=== PATIENT | male | born 1970 | race Caucasian/White ===

== ENCOUNTER → 2017-12-31 08:57 | Outpatient (CLI) | payer MEDICAID, SELFPAY | LOC: POLAB3 08:57 → LAB.FUTURE 11:28 | PROVIDERS: Family Provider Family Medicine Geriatric Medicine; PCP Family Medicine Geriatric Medicine; Visit Provider Family Medicine Geriatric Medicine | DX: I10 Essential (primary) hypertension (principal) ==

== ENCOUNTER → 2018-01-12 13:30 | Outpatient (CLI) | payer MEDICAID, SELFPAY | PROVIDERS: Family Provider Family Medicine Geriatric Medicine; PCP Family Medicine Geriatric Medicine; Visit Provider Family Medicine Geriatric Medicine | DX: I10 Essential (primary) hypertension (principal) ==

== ENCOUNTER → 2018-01-12 15:34 | Outpatient (CLI) | payer MEDICAID, SELFPAY ==
[2018-01-12 16:23] LABS: Absolute Lymphocyte Count 4.46 X10^3/ul (0.83-4.51); Absolute Neutrophil Count 4.7 X10^3/uL (2.0-7.7); Basophil# 0.06 X10^3/uL; Basophil% 0.6 % (0-1); Hematocrit 41.4 % (40-54); Hemoglobin 14.3 g/dl (13.0-16.5); Lymphocyte # 4.46 X10^3/ul (4.0); Lymphocyte % 43.6 % (19-41); Mean Corp Hgb Conc 34.5 g/gl (32-36); Mean Corpuscular Hgb 30.6 pg (27.0-32.0); Mean Corpuscular Volume 88.5 fL (80-94); Mean Platelet Vol. 10.2 fl (6.2-12.0); Monocyte# 0.83 X10^3/uL; Monocyte% 8.1 % (0-10); Neutrophil # 4.67 X10^3/uL (2.7-7.7); Neutrophil % 45.5 % (47-70); Platelet Count 283 K/mm3 (150-450); RBC Distribution Width SD 41.8 fl (35.1-43.9); Red Blood Count 4.68 M/mm3 (4.6-6.2); White Blood Count 10.2 K/mm3 (4.4-11.0)
[2018-01-12 16:24] LABS: POSITIVE COUNT NO; POSITIVE DIFFERENTIAL NO; POSITIVE MORPHOLOGY NO
[2018-01-12 16:47] LABS: ALB/GLOB Ratio 0.8 RATIO (0.9-2.4); AST(SGOT) 22 U/L (15-37); Alanine Aminotransfer ALT/SGPT 32 U/L (16-61); Albumin, Serum 3.4 g/dL (3.2-5.0); Alkaline Phosphatase 112 U/L (45-117); Anion Gap 5 (5-15); BUN 12 mg/dL (7-18); Calcium,Total 8.5 mg/dL (8.5-10.1); Chloride 105 mmol/L (98-107); EST Glomerular Filtration Rate 128 mL/min (>60); Est Glom Filt Rate - Afr Amer 155 mL/min (>60); Glucose 78 mg/dL (74-106); Potassium 4.5 mmol/L (3.5-5.1); Protein, Total 7.4 g/dL (6.4-8.2); Sodium Level 140 mmol/L (136-145); Thyroid Stim Hormone (TSH) 1.54 uIU/mL (0.358-3.74)
== END ==
PROVIDERS: Family Provider Family Medicine Geriatric Medicine; PCP Family Medicine Geriatric Medicine; Visit Provider Family Medicine Geriatric Medicine
DX: I10 Essential (primary) hypertension (principal)
CPT/HCPCS: 36415; 80053; 84443; 85025

== ENCOUNTER → 2019-01-25 | Outpatient (CLI) | payer MEDICAID, SELFPAY ==
[2019-01-25 12:57] LABS: Absolute Lymphocyte Count 4.23 X10^3/ul (0.83-4.51); Basophil# 0.06 X10^3/uL; Basophil% 0.6 % (0-1); Eosinophil# 0.22 X10^3/uL; Eosinophils% 2.1 % (0-5); Hemoglobin 14.1 g/dl (13.0-16.5); Lymphocyte # 4.23 X10^3/ul (4.0); Lymphocyte % 41.2 % (19-41); Mean Corp Hgb Conc 33.6 g/gl (32-36); Mean Corpuscular Hgb 29.7 pg (27.0-32.0); Mean Corpuscular Volume 88.4 fL (80-94); Mean Platelet Vol. 11.1 fl (6.2-12.0); Monocyte# 0.77 X10^3/uL; Monocyte% 7.5 % (0-10); Neutrophil # 4.95 X10^3/uL (2.7-7.7); Neutrophil % 48.3 % (47-70); Platelet Count 243 K/mm3 (150-450); RBC Distribution Width CV 13.7 % (11.6-14.6); Red Blood Count 4.75 M/mm3 (4.6-6.2); White Blood Count 10.3 K/mm3 (4.4-11.0)
[2019-01-25 12:59] LABS: POSITIVE COUNT NO; POSITIVE DIFFERENTIAL NO; POSITIVE MORPHOLOGY NO
[2019-01-25 13:14] LABS: ALB/GLOB Ratio 0.9 RATIO (0.9-2.4); AST(SGOT) 19 U/L (15-37); Alanine Aminotransfer ALT/SGPT 31 U/L (16-61); Albumin, Serum 3.5 g/dL (3.2-5.0); Alkaline Phosphatase 99 U/L (45-117); Anion Gap 9 (5-15); BUN 13 mg/dL (7-18); BUN/Creat Ratio 15.7 RATIO (10-20); Calcium,Total 8.5 mg/dL (8.5-10.1); Chloride 108 mmol/L (98-107); Creatinine, Serum 0.83 mg/dL (0.70-1.30); EST Glomerular Filtration Rate 106 mL/min (>60); Est Glom Filt Rate - Afr Amer 128 mL/min (>60); Globulin 3.9 g/dL (2.2-4.2); Glucose 156 mg/dL (74-106); Potassium 3.8 mmol/L (3.5-5.1); Protein, Total 7.4 g/dL (6.4-8.2); Sodium Level 141 mmol/L (136-145); Thyroid Stim Hormone (TSH) 0.75 uIU/mL (0.358-3.74)
== END | disposition home or self-care (01) ==
LOC: POLAB3 11:34
PROVIDERS: Family Provider Family Medicine Geriatric Medicine; PCP Family Medicine Geriatric Medicine; Visit Provider Family Medicine Geriatric Medicine
DX: I10 Essential (primary) hypertension (principal)
CPT/HCPCS: 36415; 80053; 84443; 85025

== ENCOUNTER → 2020-04-15 14:25 | Outpatient (CLI) | payer MEDICAID, SELFPAY ==
[2020-04-15 14:52] LABS: Absolute Lymphocyte Count 3.99 X10^3/uL (0.83-4.51); Absolute Neutrophil Count 5.8 X10^3/uL (2.0-7.7); Basophil# 0.08 X10^3/uL; Basophil% 0.7 % (0-1); Eosinophil# 0.41 X10^3/uL; Eosinophils% 3.7 % (0-5); Hematocrit 39.6 % (40-54); Hemoglobin 13.1 g/dL (13.0-16.5); Lymphocyte # 3.99 X10^3/ul (4.0); Lymphocyte % 35.7 % (19-41); Mean Corp Hgb Conc 33.1 g/dL (32-36); Mean Corpuscular Hgb 29.5 pg (27.0-32.0); Mean Corpuscular Volume 89.2 fL (80-94); Mean Platelet Vol. 9.9 fl (6.2-12.0); Monocyte# 0.87 X10^3/uL; Monocyte% 7.8 % (0-10); NRBC Flagged by Analyzer 0 % (0-5); Neutrophil # 5.82 X10^3/uL (2.7-7.7); Neutrophil % 51.9 % (47-70); Platelet Count 290 K/mm3 (150-450); RBC Distribution Width CV 12.7 % (11.6-14.6); RBC Distribution Width SD 41.4 fl (35.1-43.9); Red Blood Count 4.44 M/mm3 (4.6-6.2); White Blood Count 11.2 K/mm3 (4.4-11.0)
[2020-04-15 15:17] LABS: ALB/GLOB Ratio 0.8 RATIO (0.9-2.4); AST(SGOT) 14 U/L (15-37); Alanine Aminotransfer ALT/SGPT 28 U/L (16-61); Albumin, Serum 3.3 g/dL (3.2-5.0); Alkaline Phosphatase 98 U/L (45-117); Anion Gap 5 (5-15); BUN 17 mg/dL (7-18); BUN/Creat Ratio 21.2 RATIO (10-20); Calcium,Total 8.8 mg/dL (8.5-10.1); Chloride 107 mmol/L (98-107); EST Glomerular Filtration Rate 109 mL/min (>60); Est Glom Filt Rate - Afr Amer 132 mL/min (>60); Glucose 109 mg/dL (74-106); Potassium 4.1 mmol/L (3.5-5.1); Protein, Total 7.3 g/dL (6.4-8.2); Sodium Level 139 mmol/L (136-145); Thyroid Stim Hormone (TSH) 1.33 uIU/mL (0.358-3.74)
== END ==
PROVIDERS: PCP Family Medicine Geriatric Medicine; Visit Provider Family Medicine Geriatric Medicine
DX: I10 Essential (primary) hypertension (principal)
CPT/HCPCS: 36415; 80053; 84443; 85025

== ENCOUNTER 2020-12-18 23:02 | Inpatient (IN) | payer MEDICAID, SELFPAY ==
[2020-12-18 23:03] VITALS: BP 138/81; PULSE 89; RESP 18; TEMP 36.9; O2SAT 100; BMI 28.1
--- NOTE | 2020-12-18 23:22 | ED.VIS.GEN ---
History of Present Illness Chief Complaint: Substance Abuse Narrative: Patient is a 50-year-old male who presents with drug use and agitation. He states he normally takes Suboxone. He only took about a half a tablet today and was not feeling well. He states a friend gave him another pill that was like Suboxone but was not. He states that after taking this he does not feel well. He feels agitated. He became diaphoretic. He is complaining cramping in his legs. This feels somewhat like withdrawal. He denies fevers nausea vomiting diarrhea or recent illness. He does have a history of atrial fibrillation. He takes metoprolol and a cholesterol medicine. He does not believe he takes a blood thinner. He does admit to polysubstance abuse and also used methamphetamine this morning. Past Medical History - Allergies and Home Meds Allergies/Adverse Reactions: Allergies No Known Allergies Allergy (Verified 12/18/20 23:05) Primary Care Physician: Moisés Ravi Chi, MD [Primary Care Provider] - Past Medical History: - - Atrial fibrillation, polysubstance abuse Smoking Status: Current every day smoker Review of Systems All systems negative except as indicated General: Reports: Sweats Eyes: Denies: Visual changes - bilaterally ENT: Denies: Bilateral ear pain Cardiovascular: Denies: Chest pain Respiratory: Denies: Dyspnea Gastrointestinal: Denies: Abdominal pain, Nausea, Vomiting, Diarrhea Musculoskeletal: Reports: Myalgias, - - Muscle cramps Skin: Denies: Rash Neurological: Denies: Headache Allergy: Denies: Uticaria Physical Exam Vital Signs/Narrative: Vital Signs Temp Pulse Resp BP Pulse Ox 12/18/20 23:03 98.5 F 89 18 138/81 H 100 Inital Vital Signs reviewed: Yes General: Acute Distress, - - Entered the room and the patient was lying on the floor screaming Head: Normocephalic, Atraumatic Eyes: EOMI ENT: Moist mucous membranes Neck: Supple Cardiovascular: Regular rate, Regular rhythm Respiratory: No distress, CTA bilaterally Abdomen: Soft, Nontender Extremities: Nontender Skin: - - Diaphoretic Neurological: Alert, - - No focal or lateralizing neurological deficits, agitated Psychological: Normal affect Diagnostic/Tx/Re-eval Laboratory Results 12/18/20 12/18/20 12/18/20 23:35 23:35 23:35 WBC 15.8 H RBC 5.06 Hgb 15.0 Hct 44.5 MCV 87.9 MCH 29.6 MCHC 33.7 RDW Std Deviation 41.1 RDW Coeff of Marilu 12.8 Plt Count 365 MPV 9.8 Immature Gran % (Auto) 0.300 Neut % (Auto) 49.4 Lymph % (Auto) 40.0 Gaines % (Auto) 8.2 Eos % (Auto) 1.6 Baso % (Auto) 0.5 Absolute Neuts (auto) 7.8 H Absolute Lymphs (auto) 6.31 H Nucleated RBC % 0 Differential Comment SCANNED Reactive Lymphocytes 1+ PT 12.3 INR 1.0 Sodium 142 Potassium 3.9 Chloride 108 H Carbon Dioxide 27.0 Anion Gap 7 BUN 17 Creatinine 0.95 Estim Creat Clear Calc 92.00 Est GFR (MDRD) Af Amer 109 Est GFR (MDRD) Non-Af 90 BUN/Creatinine Ratio 18.0 Glucose 105 Calcium 9.1 Total Bilirubin 0.20 Direct Bilirubin < 0.05 AST 17 ALT 25 Alkaline Phosphatase 105 Troponin I < 0.015 Total Protein 7.8 Albumin 3.6 Globulin 4.2 Ethyl Alcohol 12/18/20 23:35 WBC RBC Hgb Hct MCV MCH MCHC RDW Std Deviation RDW Coeff of Marilu Plt Count MPV Immature Gran % (Auto) Neut % (Auto) Lymph % (Auto) Gaines % (Auto) Eos % (Auto) Baso % (Auto) Absolute Neuts (auto) Absolute Lymphs (auto) Nucleated RBC % Differential Comment Reactive Lymphocytes PT INR Sodium Potassium Chloride Carbon Dioxide Anion Gap BUN Creatinine Estim Creat Clear Calc Est GFR (MDRD) Af Amer Est GFR (MDRD) Non-Af BUN/Creatinine Ratio Glucose Calcium Total Bilirubin Direct Bilirubin AST ALT Alkaline Phosphatase Troponin I Total Protein Albumin Globulin Ethyl Alcohol < 3.0 - Medical Decision Making Labs notable for white blood cell count of 15.8, chemistries unremarkable including CMP negative troponin negative alcohol. Patient was given IV Ativan 2 mg twice. He is still somewhat agitated although improved from before. We were able to contact a friend. Patient was given naltrexone. Given that he has been using Suboxone this could precipitate withdrawal symptoms. This is likely the cause of his current presentation. Patient signed out to the oncoming physician to follow-up on remaining studies and reevaluate but plan at this time would be symptomatic control and once improved ultimately discharged. ED Disposition - Plan for ED Patient: Diagnosis: Opiate withdrawal Referrals: Moisés Ravi Chi, MD [Primary Care Provider] -
[2020-12-18] MEDS: LORazepam 2 MG/ML Syringe IV ×2 (23:35→23:56)
[2020-12-18 23:44] VITALS: BP 156/96; PULSE 103; RESP 27; O2SAT 98
[2020-12-18 23:45] LABS: Absolute Lymphocyte Count 6.31 X10^3/uL (0.83-4.51); Absolute Neutrophil Count 7.8 X10^3/uL (2.0-7.7); Basophil# 0.08 X10^3/uL; Basophil% 0.5 % (0-1); Eosinophil# 0.25 X10^3/uL; Eosinophils% 1.6 % (0-5); Hematocrit 44.5 % (40-54); Lymphocyte # 6.31 X10^3/ul (4.0); Mean Corp Hgb Conc 33.7 g/dL (32-36); Mean Corpuscular Hgb 29.6 pg (27.0-32.0); Mean Corpuscular Volume 87.9 fL (80-94); Mean Platelet Vol. 9.8 fl (6.2-12.0); Monocyte% 8.2 % (0-10); NRBC Flagged by Analyzer 0 % (0-5); Neutrophil # 7.79 X10^3/uL (2.7-7.7); Neutrophil % 49.4 % (47-70); POSITIVE DIFFERENTIAL YES; Platelet Count 365 K/mm3 (150-450); RBC Distribution Width CV 12.8 % (11.6-14.6); RBC Distribution Width SD 41.1 fl (35.1-43.9); Red Blood Count 5.06 M/mm3 (4.6-6.2); White Blood Count 15.8 K/mm3 (4.4-11.0)
[2020-12-18 23:46] LABS: Differential Indicated SCAN CRITERIA MET
[2020-12-18 23:54] LABS: Prothrombin Time (Protime)PT. 12.3 SECONDS (11.7-14.9)
[2020-12-19] VITALS (10 sets, daily range): BP systolic 116–178; BP diastolic 75–118; PULSE 70–118; RESP 16–24; TEMP 36.4–37.6; O2SAT 98–100; BMI 27.5
[2020-12-19 00:03] LABS: Alcohol, Blood (Medical)-Serum < 3.0 mg/dL
[2020-12-19 00:09] LABS: Reactive Lymphocyte 1+
[2020-12-19 00:10] LABS: Differential Comment SCANNED
[2020-12-19 00:12] LABS: AST(SGOT) 17 U/L (15-37); Alanine Aminotransfer ALT/SGPT 25 U/L (16-61); Albumin, Serum 3.6 g/dL (3.2-5.0); Alkaline Phosphatase 105 U/L (45-117); Anion Gap 7 (5-15); BUN 17 mg/dL (7-18); Bilirubin, Direct < 0.05 mg/dL (0.00-0.30); Calcium,Total 9.1 mg/dL (8.5-10.1); Chloride 108 mmol/L (98-107); Creatinine, Serum 0.95 mg/dL (0.70-1.30); EST Glomerular Filtration Rate 90 mL/min (>60); Est Glom Filt Rate - Afr Amer 109 mL/min (>60); Globulin 4.2 g/dL (2.2-4.2); Glucose 105 mg/dL (74-106); Potassium 3.9 mmol/L (3.5-5.1); Protein, Total 7.8 g/dL (6.4-8.2); Sodium Level 142 mmol/L (136-145)
--- NOTE | 2020-12-19 00:14 | ED.RN ---
PER PT OK TO SPEAK TO EMMA GARCIA OVER THE PHONE
[2020-12-19] MEDS: Ziprasidone IM 20 MG/ML VIAL IM ×2 (01:06→02:21)
--- NOTE | 2020-12-19 01:08 | ED.RN ---
PT EXTREMELY RESTLESS. TRYING TO GET OUT OF BED. NEEDS REDIRECTED MULTIPLE TIMES, TOO NUMEROUS TO COUNT. DELILAH HOLLAND AT BEDSIDE. PT MOVED TO BED NEAR NURSES STATION. ASKED FOR PRN ORDERS, VERBAL ORDERS GIVEN.
--- NOTE | 2020-12-19 01:17 | ED.RN ---
ELIZABETH CALLED AND SAID PATIENT HAD A REFERRAL TO [facility]. ELIZABETH HAD ALSO ASKED FOR THE PINK SLIP TO BE FAXED OVER TO HER, WAS FAXED AT [phone].
--- NOTE | 2020-12-19 01:29 | RAD_ITS ---
STUDY: X-RAY CHEST REASON FOR EXAM: Male, 50 years old. Altered Mental Status TECHNIQUE: Single AP portable view of the chest. COMPARISON: 08/05/2012 FINDINGS: The lungs are clear and expanded. There is no demonstrated pleural abnormality. Normal size heart. Normal mediastinum and linette. Normal visualized pulmonary arteries. Normal visualized aortic arch and descending thoracic aorta. Normal visualized thoracic spine. Normal visualized ribs, clavicles, and shoulders. There is no demonstrated abnormality of the visualized soft tissue structures of the upper abdomen. RAD/Chest 1 View (Portable) IMPRESSION: Normal x-ray examination of the chest. Electronically Signed: Rodri Boyer DO at 2:00 EST Tel , Service support ,
--- NOTE | 2020-12-19 01:51 | ED.RN ---
PT CONTINUES TO MOVE ALL OVER THE BED. NEEDS REDIRECTED TO STAY IN BED. WILL NOT KEEP A BLANKET OR GOWN ON. PLACES BLANKET ON HIMSELF AND THEN KICKS IT OFF. WILL CONTINUE TO MONITOR.
--- NOTE | 2020-12-19 01:52 | ED.RN ---
pt arrives to ed with acute s/s of withdraw. pt was thrashing around bed, cool, and damp to the touch. cina completed and IV Ativan ordered to help control withdraw symptoms. pt required frequent reminders to stay in bed, because he was at risk of falling while on medications. IV access was pulled by pt restless movements in the bed. significant other arrived to ed shortly after visiting the pt stated I have to go. I can't see him like this and departed. after multiple interventions to assist him to scoot back into the bed pt was moved into the front of the department for closer observation. pt was re-evaluated to night time md and addition medications ordered to assist him to remain calm. this nurse stayed at bedside verbally reminding pt to stay in bed and covering him with a blanket. night md has evaluated pt multiples times post intervention. pt care has been impeded by pt restlessness. care transfered to night time rn at 0145. luke munguia, katheryn [phone]
[2020-12-19] MEDS: DiphenhydrAMINE 50 MG/ML Syringe IM (02:21)
--- NOTE | 2020-12-19 02:51 | ED.RN ---
PT GIRLFRIEND HAS COUPLE'S CAR AND DOES NOT HAVE ENOUGH GAS TO GET HOME. GIRLFRIEND ASKING FOR SOME OF THE COUPLE'S RAMON THAT IS ON PATIENT. PATIENT BROWN JACKET SEARCHED AND MONEY LOCATED IN BREAST POCKET ALONG WITH A SMALL PLASTIV BAG FILLED WITH A BLUE POWDER. BAG WITH BLUE POWDER GIVEN TO O [place]. RAMON COUNTED WITH AWA HOLLAND AND ANAY HOLLAND AND RECORDED. MONEY COUNTED IN FRONT OF PT'S GIRLFRIEND. GIRLFRIEND TOOK $40 (2-20'S) TO FILL UP CAR TO GET HOME TO [place]. CHAIN OF CUSTODY PATIENT BELONGINGS PAPER FILLED OUT AND SIGNED. PT GAVE CONSENT PRIOR TO BEING MEDICATED TO SHARE ALL MEDICAL INFORMATION WITH GIRLFRIEND
--- NOTE | 2020-12-19 02:52 | ED.RN ---
PT WAS PLACED IN LEATHER, LOCKED RESTRAINTS. PT CONTINUES AGITATION, CONFUSION, EXTREME FALL RISK, EXTREME SELF DESTRUCTIVE BEHAVIOR. ATTEMPTED TO PLACE PT ON TELEMETRY, PT IS THRASHING IN BED, TELEMETRY LEADS, BP CUFF AND PULSE OX WILL NOT STAY ON PT. PT IS REDIRECTED ABOUT EVERY THREE MINUTES. PT WAS MEDICATED AGAIN. RESTRAINT PAPERWORK STARTED, UNABLE TO COMPLETE FULL VITAL SIGNS D/T THRASHING AND AGITATION. MULTIPLE STAFF MEMBERS HAVE REDIRECTED PATIENT. INFORMATION TECHNOLOGY OFFICER AT BEDSIDE TO REDIRECT PT. MD HAS BEEN UPDATED THROUGHOUT HOSPITAL STAY.
[2020-12-19 03:47] LABS: CPK Total, Creatine Kinase 166 U/L (39-308)
--- NOTE | 2020-12-19 04:01 | ED.RN ---
PT CONTINUES AGITATION, CONFUSION AND DELIRIUM. RN RETURNS FROM LUNCH WITH MULTIPLE RNS AND MD IN ROOM. PT HAS BEEN REPOSITIONED, CATHETER FOR UA. IV WAS PLACED WHILE RN WAS ON LUNCH.
[2020-12-19 04:07] LABS: Bacteria 0 SEEN /hpf (None Seen); Mucous, Urine 0 SEEN /hpf (<or=2+); Red Blood Cells-Urine 0 SEEN /hpf (0-5); Squamous Epithelial Cells - UA 0 SEEN /hpf (0-5); White Blood Cells 0 SEEN /hpf (0-5)
[2020-12-19 04:08] LABS: Amphetamine Urine VISTA POSITIVE (<1000 ng/mL); Barbiturate Urine VISTA NEGATIVE (< 200 ng/mL); Benzodiazepine Urine VISTA NEGATIVE (< 200 ng/mL); Cocaine Urine VISTA NEGATIVE (< 300 ng/mL); Color, Urine Yellow (Yellow); Ecstacy Urine VISTA NEGATIVE (< 500 ng/mL); Glucose, Dipstick Normal (Normal); Ketone-Dipstick Negative (Negative); Leukocyte Esterase-Dipstick Negative /ul (Negative); Methadone Urine VISTA NEGATIVE (< 300 ng/mL); Nitrite-Dipstick Negative (Negative); Occult Blood-Urine Negative /ul (Negative); PCP Urine VISTA NEGATIVE (< 25 ng/mL); Protein-Dipstick Negative (Negative); Specific Gravity, Urine 1.015 (1.002-1.030); THC Urine VISTA POSITIVE (< 50 ng/mL); Urine Bilirubin Dipstick Negative (Negative); Urine Clarity Clear (Clear); Urine Urobilinogen Normal (Normal); Vista UDS pH Range 6
[2020-12-19] MEDS: 0.9% Normal Saline 1,000 ML 999 ML IV ×2 (04:08→04:53)
[2020-12-19] MEDS: LORazepam 2 MG/ML Syringe IV (04:08)
--- NOTE | 2020-12-19 06:33 | ED.RN ---
PT HAS RED PEREZ ON BILATERAL ANKLES D/T RESTRAINTS. AWARE. PT CONTINUES THRASHING AROUND IN BED.
--- NOTE | 2020-12-19 08:52 | NURSING ---
PT ARRIVED TO FLOOR IN 4 POINT LEATHER RESTRAINTS. AGITATED, TRYING TO WIGGLE OUT OF RESTRAINTS. UNABLE TO ANSWER APPROPRIATE ADMISSION QUESTIONS @ THIS TIME.
--- NOTE | 2020-12-19 08:57 | NURSING ---
Brielle Chauncey [phone] called in stating she is aware her brother is a patient there. explained she is not on contact list and unable to give any information. explained visitor restriction for this patient. Brielle requesting that when able we talk with patient and see if she can be added to the contact list.
--- NOTE | 2020-12-19 08:58 | NURSING ---
PT AGITATED, TRYING TO GET OUT OF RESTRAINTS
--- NOTE | 2020-12-19 09:11 | NURSING ---
PTS MOTHER, CASSY NAIK CALLED IN FOR UPDATE ON PT
[2020-12-19] MEDS: Gabapentin 300 MG Capsule PO (09:27)
[2020-12-19] MEDS: Methocarbamol 750 MG Tablet 1500 MG PO ×2 (09:27→17:07)
[2020-12-19] MEDS: cloNIDine HCl 0.1 MG Tablet PO ×2 (09:27→17:06)
[2020-12-19] MEDS: Buprenorphine HCl 2 MG TAB.SUBL SL ×2 (09:27→17:07)
[2020-12-19] MEDS: hydrOXYzine PAM 25 MG Capsule 50 MG PO ×2 (09:27→17:07)
--- NOTE | 2020-12-19 09:57 | NURSING ---
GIVEN PT'S MENTAL STATUS, PT IS UNABLE TO ANSWER QUESTIONS, PAST MEDICAL HISTORY WAS RECALLED
--- NOTE | 2020-12-19 11:09 | NURSING ---
PT RESTLESS , PULLING @ RESTRAINTS BUT EYES CLOSED, RESP EASY.
--- NOTE | 2020-12-19 12:06 | NURSING ---
PT RESTING @ THIS TIME. DR GUILLAUME IN TO SEE PT.
--- NOTE | 2020-12-19 13:18 | PCM.HP.STD ---
History of Present Illness Date of Admission: 12/19/20 Chief Complaint: Withdrawal The patient is a 50 year old M [facility] as below who presents to the hospital with opiate withdrawal. He states that he is on Suboxone at home at baseline and thinks that somebody gave him something that reversed his Suboxone. He has been very difficult to manage in the ER, with severe agitation. He has been given total of 6 mg of Ativan, 40 mg of Geodon and 50 mg of Benadryl. He is currently resting but is in restraints at this time obtaining a history for him is extremely challenging therefore most of this is obtained from chart review and discussion with the physician. He does have a history of polysubstance abuse and use methamphetamines yesterday morning. He also has a history of A. fib but does not take any anticoagulants. Past Medical History Allergies No Known Allergies Allergy (Verified 12/18/20 23:05) Home Medications: Ambulatory Orders Medication Instructions Recorded Atorvastatin Calcium 40 mg PO QHS 12/18/20 Buprenorphine HCl/Naloxone HCl 1 ea SL DAILY 12/18/20 [Buprenorp-Nalox 8-2 mg Sl Film] Metoprolol Succinate [Toprol Xl] 100 mg PO DAILY 12/18/20 Surgical History: - - Unable to obtain due to his mental status Smoking Status: Current every day smoker Tobacco Use: Cigarettes Drugs: - - With amphetamines and Suboxone - *Family History Maternal History Items: Unknown Paternal History Items: Unknown Review of Systems Unable to obtain accurate/complete ROS d/t: Mental status VTE Information - Inpt Only VTE Present on Admission: No Patient Problems: Active and Suspected Problems Opiate withdrawal (Acute) - Physical Exam Vitals/I&O's: Vital Signs Temp Pulse Resp BP Pulse Ox 99.6 F H 84 22 H 154/92 H 100 12/19/20 12:09 12/19/20 12:09 12/19/20 12:09 12/19/20 12:09 12/19/20 12:09 Oxygen Delivery Method Room Air Weight: 181 lb Body Mass Index (BMI) 27.5 Intake and Output for Last 24 Hours 12/17/20 12/18/20 12/19/20 23:59 23:59 23:59 Intake Total 2150 / 2150 Output Total 500 / 500 Balance 1650 / 1650 General: No apparent distress, Lethargic HEENT: Atraumatic, PERRLA, Normocephalic Oral: Dry Mucosa Neck: Supple, No JVD Lungs: Clear to auscultation, Normal air movement, No rhonchi, No wheeze, No rales Cardiovascular: Regular rate, Regular Rhythm, Normal S1, Normal S2, No murmurs Abdomen: Soft, Non-Distended, No Hepato-splenomegaly Extremities: No edema, Capillary Refill Less than 3 Seconds Skin: No rashes, No breakdown Neurological: - - Unable to obtain secondary to mental status Psych/Mental Status: - - Unable to evaluate secondary to mental status Laboratory Results 12/18/20 23:35: WBC 15.8 H, RBC 5.06, Hgb 15.0, Hct 44.5, MCV 87.9, MCH 29.6, MCHC 33.7, RDW Std Deviation 41.1, RDW Coeff of Marilu 12.8, Plt Count 365, MPV 9.8, Immature Gran % (Auto) 0.300, Neut % (Auto) 49.4, Lymph % (Auto) 40.0, Schleicher % (Auto) 8.2, Eos % (Auto) 1.6, Baso % (Auto) 0.5, Absolute Neuts (auto) 7.8 H, Absolute Lymphs (auto) 6.31 H, Nucleated RBC % 0, Differential Comment SCANNED, Reactive Lymphocytes 1+ 12/18/20 23:35: PT 12.3, INR 1.0 12/18/20 23:35: Sodium 142, Potassium 3.9, Chloride 108 H, Carbon Dioxide 27.0, Anion Gap 7, BUN 17, Creatinine 0.95, Estim Creat Clear Calc 92.00, Est GFR (MDRD) Af Amer 109, Est GFR (MDRD) Non-Af 90, BUN/Creatinine Ratio 18.0, Glucose 105, Calcium 9.1, Total Bilirubin 0.20, Direct Bilirubin < 0.05, AST 17, ALT 25, Alkaline Phosphatase 105, Troponin I < 0.015, Total Protein 7.8, Albumin 3.6, Globulin 4.2 12/18/20 23:35: Ethyl Alcohol < 3.0 12/18/20 23:35: Total Creatine Kinase 166 12/19/20 03:50: Urine Opiates Screen NEGATIVE, Urine Methadone Screen NEGATIVE, Ur Barbiturates Screen NEGATIVE, Ur Phencyclidine Scrn NEGATIVE, Ur Amphetamines Screen POSITIVE H, U Methamphetamin-MDMA NEGATIVE, U Benzodiazepines Scrn NEGATIVE, Urine Cocaine Screen NEGATIVE, U Cannabinoids Screen POSITIVE H, Ur Drug Screen Comment 12/19/20 03:50: Urine Color Yellow, Urine Clarity Clear, Urine pH 7.0, Ur Specific [place] 1.015, Urine Protein Negative, Urine Glucose (UA) Normal, Urine Ketones Negative, Urine Occult Blood Negative, Urine Nitrite Negative, Urine Bilirubin Negative, Urine Urobilinogen Normal, Ur Leukocyte Esterase Negative, Urine RBC 0 SEEN, Urine WBC 0 SEEN, Ur Squamous Epith Cells 0 SEEN, Urine Bacteria 0 SEEN, Urine Mucus 0 SEEN Current Medications Buprenorphine HCl (Buprenorphine Hcl 2 Mg Tab.Subl) 4 mg SL Q8H ROBERT; Taper Stop: 12/22/20 09:29 Last Admin: 12/19/20 09:27 Dose: 4 mg Documented by: Chlordiazepoxide (Chlordiazepoxide 25 Mg Capsule) 25 mg PO TID ROBERT Clonidine (Clonidine Hcl 0.1 Mg Tablet) 0.1 mg PO Q8H PRN PRN PRN Reason: RESTLESSNESS Last Admin: 12/19/20 09:27 Dose: 0.1 mg Documented by: Dicyclomine HCl (Dicyclomine 10 Mg Capsule) 20 mg PO Q6H PRN PRN PRN Reason: Abdominal Discomfort Gabapentin (Gabapentin 300 Mg Capsule) 300 mg PO Q8H PRN PRN PRN Reason: moderate to severe anxiety Last Admin: 12/19/20 09:27 Dose: 300 mg Documented by: Hydroxyzine Pamoate (Hydroxyzine Erna 25 Mg Capsule) 50 mg PO Q6H PRN PRN PRN Reason: mild anxiety Last Admin: 12/19/20 09:27 Dose: 50 mg Documented by: Loperamide HCl (Loperamide 2 Mg Capsule) 2 mg PO Q4H PRN PRN PRN Reason: LOOSE STOOLS Methocarbamol (Methocarbamol 750 Mg Tablet) 1,500 mg PO Q6H PRN PRN PRN Reason: MUSCLE SPASM Last Admin: 12/19/20 09:27 Dose: 1,500 mg Documented by: Ondansetron HCl (Ondansetron 8 Mg Tablet) 8 mg PO Q8H PRN PRN PRN Reason: NAUSEA Sodium Chloride (0.9% Saline Lock 10 Ml Syringe) 10 - 40 ml IV UD PRN PRN Reason: SALINE FLUSH Trazodone HCl (Trazodone 100 Mg Tablet) 100 mg PO QHS PRN PRN PRN Reason: INSOMNIA Assessment/Plan All Active Problems Opiate withdrawal (Acute) 1. Drug withdrawal psychosis/polysubstance abuse -He is on chronic Suboxone and states that he took a pill and he was not sure what but he thinks that may have reversed his Suboxone -He also took methamphetamines prior to coming into the ER last evening -He has been given multiple doses of Ativan as well as Benadryl and Geodon -Since he does have a history of polysubstance abuse I am not sure as to what he is taking we will continue with the Suboxone taper when able as well as Librium since his liver function and renal function are stable -We will have him evaluated by 180 2. A. fib -Heart rate and blood pressure are stable -Received 2 L of fluid in the ER, can resume his home metoprolol -He is 50 years old so no need for anticoagulation at this time -Continue with Lipitor DVT: Ambulation Inpatient E&M: 05905 Init Hosp L2
--- NOTE | 2020-12-19 13:22 | NURSING ---
PT RESTING QUIETLY IN BED, EYES CLOSED, RESP EASY. R ANKLE RESTRAINT REMOVED.
[2020-12-19] MEDS: chlordiazePOXIDE 25 MG Capsule PO ×2 (14:13→23:27)
--- NOTE | 2020-12-19 14:37 | NURSING ---
PT RESTING IN BED, EYES CLOSED, SNORING RESP. RESTRAINT REMOVED FROM LUE. PT NOW IN 2 POINT RESTRAINTS.
--- NOTE | 2020-12-19 14:54 | NURSING ---
PT AWOKE FOR A FEW MOMENTS. PT STATES I'M SORRY FOR LAST NIGHT. GEOTHERMAL FIELD TECHNICIAN ASKED PT IF HE KNOWS WHERE HE IS - PT STATES [facility]. PT ASKED IF HE KNOWS WHY HE IS HERE, PT STATES BECAUSE I WAS IN WITHDRAWAL & I COULDN'T HANDLE IT. PT CALM & COOPERATIVE @ THIS TIME.
--- NOTE | 2020-12-19 15:06 | NURSING ---
superficial skin abrasions noted to bilateral anterior ankles noted from patient thrashing with the leather ankle restraints in place. placed small opsite dressings to protect skin. skin to bilateral wrists appears intact at this time.
[2020-12-19] MEDS: Metoprolol(XL)Succ 100 MG Tablet PO (17:07)
--- NOTE | 2020-12-19 17:10 | NURSING ---
pt awakens to name being spoken. cooperative to take po medications with his milk. then closes eyes and rests. HOB elevated
--- NOTE | 2020-12-19 17:21 | NURSING ---
pt cooperative, denies feeling of wanting to harm self or others. states he feels he is in control and able to follow rules for both staff and patient safety. pt updated on RAMP program at guidance of Dr. Valdes, pt verbalizes understanding and agrees to sign form. Resource officer at bedside to check in on pt- pt agrees to behave and states oh, you wont have any problems, thank you for keeping me safe. restraints removed. pt then asks if hob can be lowered i just want to get some sleep offered any other meal choices of pt preference and pt declines. states i just want to sleep. Said nurse remains at bedside 1:1 to monitor pt.
--- NOTE | 2020-12-19 17:25 | NURSING ---
pt states the it is okay to release information to his sister Brielle Grossman as well.
--- NOTE | 2020-12-19 18:34 | NURSING ---
aware pt released from 1:1 remains on camera w/ bedexit. awaRe pt a&Ox3, cooperative at present
--- NOTE | 2020-12-19 18:55 | NURSING ---
1820- pt continues to rest quietly in bed. cooperative when opens eyes briefly, no needs. Bed exit remains on.
[2020-12-19] MEDS: Ondansetron 8 MG Tablet PO (22:19)
[2020-12-19] MEDS: Atorvastatin Calcium 40 MG Tablet PO (23:27)
[2020-12-20] MEDS: Buprenorphine HCl 2 MG TAB.SUBL SL ×2 (01:29→09:04)
[2020-12-20 02:00] VITALS: BP 128/83; PULSE 71; RESP 18; TEMP 36.8; O2SAT 100
[2020-12-20] MEDS: chlordiazePOXIDE 25 MG Capsule PO (05:25)
--- NOTE | 2020-12-20 08:57 | PCM.PN.HOSP ---
Patient Problems: Active and Suspected Problems Opiate withdrawal (Acute) Subjective: Alert today, resting comfortably. States that he really wants to get clean and is willing to stay through the ramp process Vitals/I&O's: Vital Signs Temp Pulse Resp BP Pulse Ox 98.2 F 71 18 128/83 H 100 12/20/20 02:00 12/20/20 02:00 12/20/20 02:00 12/20/20 02:00 12/20/20 02:00 Oxygen Delivery Method Room Air Weight: 180 lb 15.992 oz Body Mass Index (BMI) 27.5 Intake and Output for Last 24 Hours 12/18/20 12/19/20 12/20/20 23:59 23:59 23:59 Intake Total 2970 / 2970 300 / 300 Output Total 500 / 500 Balance 2470 / 2470 300 / 300 General: Alert, Oriented x3, Cooperative, No apparent distress HEENT: Atraumatic, PERRLA, EOMI, Normocephalic Oral: Moist Mucosa Neck: Supple, No JVD Lungs: Clear to auscultation, Normal air movement, No rhonchi, No wheeze, No rales Cardiovascular: Regular rate, Regular Rhythm, Normal S1, Normal S2, No murmurs Abdomen: Soft, Non Tender, Non-Distended, No Hepato-splenomegaly Extremities: No edema, Capillary Refill Less than 3 Seconds Skin: No rashes, No breakdown Neurological: Neuro grossly intact, Sensory exam intact to light touch and pain Psych/Mental Status: Normal Affect, Appropriate Current Medications Atorvastatin Calcium (Atorvastatin Calcium 40 Mg Tablet) 40 mg PO QHS [facility] Last Admin: 12/19/20 23:27 Dose: 40 mg Documented by: Buprenorphine HCl (Buprenorphine Hcl 2 Mg Tab.Subl) 4 mg SL Q8H [facility]; Taper Stop: 12/22/20 09:29 Last Admin: 12/20/20 01:29 Dose: 4 mg Documented by: Chlordiazepoxide (Chlordiazepoxide 25 Mg Capsule) 25 mg PO TID [facility] Last Admin: 12/20/20 05:25 Dose: 25 mg Documented by: Clonidine (Clonidine Hcl 0.1 Mg Tablet) 0.1 mg PO Q8H PRN PRN PRN Reason: RESTLESSNESS Last Admin: 12/19/20 17:06 Dose: 0.1 mg Documented by: Dicyclomine HCl (Dicyclomine 10 Mg Capsule) 20 mg PO Q6H PRN PRN PRN Reason: Abdominal Discomfort Gabapentin (Gabapentin 300 Mg Capsule) 300 mg PO Q8H PRN PRN PRN Reason: moderate to severe anxiety Last Admin: 12/19/20 09:27 Dose: 300 mg Documented by: Hydroxyzine Pamoate (Hydroxyzine Erna 25 Mg Capsule) 50 mg PO Q6H PRN PRN PRN Reason: mild anxiety Last Admin: 12/19/20 17:07 Dose: 50 mg Documented by: Loperamide HCl (Loperamide 2 Mg Capsule) 2 mg PO Q4H PRN PRN PRN Reason: LOOSE STOOLS Methocarbamol (Methocarbamol 750 Mg Tablet) 1,500 mg PO Q6H PRN PRN PRN Reason: MUSCLE SPASM Last Admin: 12/19/20 17:07 Dose: 1,500 mg Documented by: Metoprolol Succinate (Metoprolol(Xl)Succ 100 Mg Tablet) 100 mg PO DAILY ROBERT Last Admin: 12/19/20 17:07 Dose: 100 mg Documented by: Ondansetron HCl (Ondansetron 8 Mg Tablet) 8 mg PO Q8H PRN PRN PRN Reason: NAUSEA Last Admin: 12/19/20 22:19 Dose: 8 mg Documented by: Sodium Chloride (0.9% Saline Lock 10 Ml Syringe) 10 - 40 ml IV UD PRN PRN Reason: SALINE FLUSH Trazodone HCl (Trazodone 100 Mg Tablet) 100 mg PO QHS PRN PRN PRN Reason: INSOMNIA Medical Necessity - Tobacco Use Smoking Status: Current every day smoker Tobacco Use: Cigarettes Assessment/Plan All Active Problems Opiate withdrawal (Acute) 1. Drug withdrawal psychosis/polysubstance abuse -He is on chronic Suboxone and states that he took a pill and he was not sure what but he thinks that may have reversed his Suboxone -He also took methamphetamines prior to coming into the ER last evening -He has been given multiple doses of Ativan as well as Benadryl and Geodon -Since he does have a history of polysubstance abuse I am not sure as to what he is taking we will continue with the Suboxone taper when able as well as Librium since his liver function and renal function are stable -We will have him evaluated by 180 2. A. fib -Heart rate and blood pressure are stable -Received 2 L of fluid in the ER, can resume his home metoprolol -He is 50 years old so no need for anticoagulation at this time -Continue with Lipitor DVT: Ambulation Inpatient E&M: 82903 Subs Hosp L2
[2020-12-20 09:04] VITALS: PULSE 80
[2020-12-20] MEDS: Metoprolol(XL)Succ 100 MG Tablet PO (09:04)
[2020-12-20 09:12] VITALS: BP 120/86; PULSE 80; RESP 18; TEMP 37.2; O2SAT 98
--- NOTE | 2020-12-20 10:21 | ADDICTION ---
This internal communications writer met with PT in his room to complete ASAM, MSE and DUDIT assessments and to plan for discharge. All assessments completed, faxed to [facility] and placed in PT's chart. PT states that he has independent transportation for d/c. PT scheduled with [facility] for assessment and f/u treatment on 12/23/20.
== END 2020-12-20 13:35 | disposition left against medical advice (07) | DRG 770 ==
LOC: ED 12-19 03:57 → MS3 12-19 07:22
PROVIDERS: Emergency Medicine; Admitting Provider Family Medicine; Emergency Provider Student in an Organized Health Care Education/Training Program; PCP Family Medicine Geriatric Medicine; Visit Provider Family Medicine
DX: F11.23 Opioid dependence with withdrawal (principal); I48.91 Unspecified atrial fibrillation; F17.210 Nicotine dependence, cigarettes, uncomplicated; Z78.1 Physical restraint status; Z79.899 Other long term (current) drug therapy; F15.10 Other stimulant abuse, uncomplicated
CPT/HCPCS: 71045; 80048; 80076; 80307; 81001; 82077; 82550; 84484; 85025; 85610; 99285; 99406; J7030; A4216; J3486

== ENCOUNTER 2022-01-16 09:42 | Outpatient (CLI) | payer MEDICAID, SELFPAY ==
[2022-01-16 12:23] LABS: Absolute Lymphocyte Count 3.33 X10^3/uL (0.83-4.51); Absolute Neutrophil Count 3.7 X10^3/uL (2.0-7.7); Basophil# 0.05 X10^3/uL; Basophil% 0.7 % (0-1); Eosinophil# 0.14 X10^3/uL; Eosinophils% 1.8 % (0-5); Hematocrit 43.6 % (40-54); Hemoglobin 14.4 g/dL (13.0-16.5); Lymphocyte # 3.33 X10^3/ul (0.83-4.51); Lymphocyte % 43.5 % (19-41); Mean Corpuscular Hgb 29.1 pg (27.0-32.0); Mean Corpuscular Volume 88.1 fL (80-94); Mean Platelet Vol. 10.8 fl (6.2-12.0); Monocyte# 0.43 X10^3/uL; Monocyte% 5.6 % (0-10); NRBC Flagged by Analyzer 0 % (0-5); Neutrophil # 3.68 X10^3/uL (2.7-7.7); Platelet Count 240 K/mm3 (150-450); RBC Distribution Width CV 12.8 % (11.6-14.6); Red Blood Count 4.95 M/mm3 (4.6-6.2); White Blood Count 7.7 K/mm3 (4.4-11.0)
[2022-01-16 13:09] LABS: ALB/GLOB Ratio 0.7 RATIO (0.9-2.4); AST(SGOT) 32 U/L (15-37); Alanine Aminotransfer ALT/SGPT 48 U/L (16-61); Albumin, Serum 3.2 g/dL (3.2-5.0); Alkaline Phosphatase 102 U/L (45-117); Anion Gap 5 (5-15); BUN 10 mg/dL (7-18); BUN/Creat Ratio 11.2 RATIO (10-20); Calcium,Total 8.7 mg/dL (8.5-10.1); Chloride 105 mmol/L (98-107); Creatinine, Serum 0.89 mg/dL (0.70-1.30); EST Glomerular Filtration Rate 96 mL/min (>60); Est Glom Filt Rate - Afr Amer 116 mL/min (>60); Globulin 4.4 g/dL (2.2-4.2); Glucose 112 mg/dL (74-106); Potassium 3.8 mmol/L (3.5-5.1); Protein, Total 7.6 g/dL (6.4-8.2); Sodium Level 139 mmol/L (136-145); Thyroid Stim Hormone (TSH) 1.45 uIU/mL (0.358-3.74)
== END 2022-01-16 23:59 | disposition home or self-care (01) ==
LOC: POLAB3 09:44
PROVIDERS: PCP Family Medicine Geriatric Medicine; Visit Provider Family Medicine Geriatric Medicine
DX: I10 Essential (primary) hypertension (principal)
CPT/HCPCS: 36415; 80053; 84443; 85025

== ENCOUNTER 2023-04-25 11:55 | Emergency (ER) | payer MEDICAID, SELFPAY ==
[2023-04-25 11:57] VITALS: BP 146/100; RESP 18; TEMP 35.7; BMI 25.4
--- NOTE | 2023-04-25 12:09 | EX.ED.DYSGE1 ---
HPI <CUONG Lopez - Last Filed: 04/25/23 12:19> History of Present Illness Chief Complaint: Cellulitis Narrative Narrative: 53-year-old male presents with an area of redness and swelling on his right buttocks x3 days. He thinks he may have gotten bit by a spider but is not sure. He denies fever or chills. No history of similar symptoms. PFSH <CUONG Lopez - Last Filed: 04/25/23 12:19> [facility] Medical History (Updated 04/25/23 @ 12:12 by CUONG Lopez) A-fib Hx of opioid abuse Home Medications atorvastatin 40 mg tablet 40 mg PO QHS 12/18/20 [History Last Taken Unknown] buprenorphine 8 mg-naloxone 2 mg sublingual film 1 ea SL DAILY 12/18/20 [History Last Taken Unknown] metoprolol succinate 100 mg tablet,extended release 24 hr 100 mg PO DAILY 12/18/20 [History Last Taken Unknown] doxycycline hyclate 100 mg capsule 100 mg PO BID 7 days #14 caps 04/25/23 [Rx Last Taken Unknown] Allergy/AdvReac Type Severity Reaction Status Date / Time No Known Allergies Allergy Verified 04/25/23 11:58 Social History Smoking Status: Current every day smoker tobacco type: cigarettes ROS <CUONG Lopez - Last Filed: 04/25/23 12:19> ROS ED ROS Narrative Constitutional: Negative for fever, chills, malaise. Abdominal: Negative for nausea, vomiting. Skin: Positive for redness. Heme: Negative for easy bruising, bleeding, lymphadenopathy. EXAM <CUONG Lopez - Last Filed: 04/25/23 12:19> Physical Exam Narrative Exam Narrative: CONST: Patient sitting in no acute distress. EYES: Normal inspection. NECK: Normal inspection. RESP: No respiratory distress, CTAB. CVS: Regular rate and rhythm, no murmur, no gallop. SKIN: 4x4 centimeter erythematous indurated circular area on the right buttock. There is a central scab but no drainage. No lymphangitis. EXTREMITIES: Normal appearance, no pedal edema. NEURO: Oriented x4. PSYCH: Normal affect. Const Vital Signs: 04/25/23 11:57 Temperature 96.2 F L Temperature Source Temporal Respiratory Rate 18 Blood Pressure 146/100 H Blood Pressure Mean 115 Oxygen Delivery Method Room Air <Dr. Diego Chan DO - Last Filed: 04/25/23 12:56> Physical Exam Const Vital Signs: 04/25/23 11:57 Temperature 96.2 F L Temperature Source Temporal Respiratory Rate 18 Blood Pressure 146/100 H Blood Pressure Mean 115 Oxygen Delivery Method Room Air [facility] <CUONG Lopez - Last Filed: 04/25/23 12:19> [facility] Narrative Medical decision making narrative: Patient has a small area of cellulitis on his right buttock that has been present for 3 days. He appears well and nontoxic. Afebrile and vital signs stable. Area is very indurated so I think it is more consistent with cellulitis and there is no indication for I&D. He was given first dose of Doxycycline here with a prescription for home and return precautions. He was discharged in stable condition. Differential: Cellulitis, abscess, MRSA <Dr. Diego Chan DO - Last Filed: 04/25/23 12:56> [facility] Narrative Medical decision making narrative: Patient has a small area of cellulitis on his right buttock that has been present for 3 days. He appears well and nontoxic. Afebrile and vital signs stable. Area is very indurated so I think it is more consistent with cellulitis and there is no indication for I&D. He was given first dose of Doxycycline here with a prescription for home and return precautions. He was discharged in stable condition. Differential: Cellulitis, abscess, MRSA This patient was seen with a PA/DOUGHMAKER Individually assessed they patient including history and physical. I have reviewed everything on the chart that is available and agree with the documentation provided by the PA/DOUGHMAKER including discussion about the assessment, treatment plan, discussion, and return precautions. Patient with cellulitis on the buttocks. He is counseled on sitz bath's. He started antibiotics. Wound care instructions and return precautions discussed. Discharge Plan Triage Chief Complaint: Cellulitis ED Midlevel Provider: Anne Marie Momin ED Provider: Diego Chan Dx/Rx/DC Orders Clinical Impression: Cellulitis of buttock, right Instructions: Cellulitis Dc Prescriptions: New doxycycline hyclate 100 mg capsule 100 mg PO BID 7 Days Qty: 14 0RF No Action atorvastatin 40 MG tablet 40 mg PO QHS metoprolol succinate 100 MG tablet extended release 24 hr 100 mg PO DAILY buprenorphine-naloxone 1 EACH film 1 ea SL DAILY Primary Care Provider: Moisés Ravi Chi Referrals: Moisés Ravi Chi, MD [Primary Care Provider] - Activity Restrictions/Additional Instructions: Take the antibiotics and Tylenol or ibuprofen as needed for pain. If the area of redness or swelling worsens after 24 to 48 hours on the antibiotics please come back to the ER. Disposition Disposition: Home, Self Care Discharge Date/Time: 04/25/23 12:36
[2023-04-25] MEDS: Doxycycline 100 MG CAPSULE PO (12:21)
== END 2023-04-25 12:36 | disposition home or self-care (01) ==
LOC: ED 12:30
PROVIDERS: Emergency Provider Student in an Organized Health Care Education/Training Program; PCP Family Medicine Geriatric Medicine; Visit Provider Student in an Organized Health Care Education/Training Program
DX: L03.317 Cellulitis of buttock (principal); F17.210 Nicotine dependence, cigarettes, uncomplicated
CPT/HCPCS: 99283

== ENCOUNTER 2023-07-21 22:16 | Observation (INO) | payer MEDICAID, SELFPAY ==
[2023-07-21 22:17] VITALS: BP 178/110; PULSE 90; RESP 15; TEMP 35.9; O2SAT 98; BMI 24.3
--- NOTE | 2023-07-21 23:03 | EKG12_ITS ---
Test Reason : DYSRHYTHMIA Blood Pressure : / mmHG Vent. Rate : 069 BPM Atrial Rate : 069 BPM P-R Int : 140 ms QRS Dur : 082 ms QT Int : 364 ms P-R-T Axes : 070 024 045 degrees QTc Int : 390 ms Normal sinus rhythm Normal ECG Confirmed by DAX ARAUJO, TREMAYNE ([id number]), proposal editor ARABELLA SEGURA ([id number]) on 07/23/2023 1:12:08 PM Referred By: Confirmed By:TREMAYNE VERDUZCO MD
--- NOTE | 2023-07-21 23:05 | EDS_ITS ---
HPI History of Present Illness Chief Complaint: Substance Abuse Informant: patient Narrative Narrative: Patient presents requesting detox. He snorts fentanyl and heroin. He was on Suboxone for many years. He stopped it 2 or 3 weeks ago because he had been tapered down to a quarter strip a day. He states he had the good idea to switch to atul. Now every time he tries to stop he gets withdrawal symptoms. He states he feels like he has the flu when this happens. He will get nausea. Diarrhea muscle cramps and just feel bad. If he uses the symptoms go away. He would like to get detox. He states he is never injected. He only snorts and smokes. He is not exactly sure how much he uses a day but he thinks it is a quarter to half a gram. Last use was 24 hours ago. He did take a remaining Suboxone about 4 hours ago. He denies having more. PFSH PFS Medical History HTN (hypertension) PAF (paroxysmal atrial fibrillation) Polysubstance abuse Tobacco use Allergy/AdvReac Type Severity Reaction Status Date / Time No Known Allergies Allergy Verified 07/21/23 22:25 Family History (Updated 07/22/23 @ 00:[address] Niru Funez MD) Mother Heart disease Father Heart disease Surgical History (Updated 07/22/23 @ 01:[address] Maxx Johnson MD) H/O cardiac radiofrequency ablation Social History (Updated 07/22/23 @ 00:[address] Niru Funez MD) household members: other details: Lives at home with his , children 2/4/6 years old. Smoking Status: Current every day smoker tobacco type: cigarettes Smoking packs per day: 0.5 Smoking cigarettes per day: 10.0 alcohol intake: current alcohol intake frequency: holidays/special occasions only substance use type: opiates and other details: Heroin/Fentanyl snorted/smoked ROS ROS ED ROS Narrative A complete review of systems was performed and is negative except as documented in the history of present illness. Some specific details below. Constitutional: No recent fevers he has occasionally felt chilled. EYE: No visual complaints or pain. ENT: No difficulty swallowing. No swelling. No pain. CV: No chest pain or palpitations. He of A-fib but he had ablation. No symptoms now. Respiratory: No dyspnea. No hemoptysis. No difficulty taking breaths. GI: Mild diarrhea but no vomiting. Mild nausea. : No frequency dysuria or hematuria. Musculoskeletal: No recent trauma. Have some muscle aches and cramping's which he gets typically when he withdraws. Skin: No rash. Neuro: No weakness or numbness. Endocrine: No polyuria or polydipsia. EXAM Physical Exam Narrative Exam Narrative: CONSTITUTIONAL: Patient is nontoxic in appearance. The patient does seem distracted during the interview and his answers very somewhat. HEENT: No notable trauma. Mucous membranes moist. EYES: No conjunctival injection. Pupils are about 2-1/2 mm but they are clearly reactive. NECK:No JVD. No stridor. CARDIOVASCULAR: Regular rate. Regular rhythm. No notable murmur. No JVD. I do note a little bit of sweat on the clothing on his upper chest. Makes me wonder if he may have had some sweats recently but he is not diaphoretic now. RESPIRATORY: No respiratory distress. Breathing is unlabored. No wheezes. GASTROINTESTINAL: Not distended. Bowel sounds are normal. No tenderness. No guarding. No rebound. GENITOURINARY: No tenderness over the bladder. No CVA tenderness. MUSCULOSKELETAL: Atraumatic. NEUROLOGICAL: Patient is alert and appropriate but somewhat distracted. No focal deficit noted. SKIN: No noted rashes. No diaphoresis this time. PSYCHIATRIC: Patient is calm. Mood is appropriate. Const Vital Signs: 07/21/23 22:17 07/22/23 00:18 Temperature 96.6 F L 96.6 F L Temperature Source Temporal Oral Pulse Rate 90 60 Respiratory Rate 15 14 Blood Pressure 178/110 H 136/97 H Blood Pressure Mean 132 110 Pulse Ox 98 100 Oxygen Delivery Method Room Air Room Air MDM MDM MDM Narrative Medical decision making narrative: Patient CBC is overall normal. Patient's electrolytes show no marked abnormalities. Glucose is mildly elevated which can be followed. Patient's magnesium is normal. Graph patient's liver function tests are normal. Patient's ethyl alcohol is negative. Patient's HIV and syphilis antibodies are now back. Patient's urine toxicology is pending. Case was discussed with hospitalist. Patient will be admitted for detox. Lab Data Attestation: I reviewed the patient's lab results. Labs: Laboratory Results - last 24 hr 07/22/23 00:15 WBC 10.3 RBC 4.79 Hgb 13.8 Hct 42.7 MCV 89.1 MCH 28.8 MCHC 32.3 RDW Std Deviation 45.6 H RDW Coeff of Marilu 14.0 Plt Count 318 MPV 10.1 Immature Gran % (Auto) 0.300 Neut % (Auto) 66.3 Lymph % (Auto) 23.8 [place] % (Auto) 6.7 Eos % (Auto) 2.1 Baso % (Auto) 0.8 Absolute Neuts (auto) 6.8 Absolute Lymphs (auto) 2.44 Nucleated RBC % 0 Sodium 138 Potassium 4.2 Chloride 105 Carbon Dioxide 32.0 Anion Gap 1 L BUN 16 Creatinine 0.68 L Estim Creat Clear Calc 128.52 Est GFR (MDRD) Af Amer 159 Est GFR (MDRD) Non-Af 131 BUN/Creatinine Ratio 23.6 H Glucose 127 H Calcium 8.8 Magnesium 2.2 Total Bilirubin 0.20 AST 22 ALT 32 Alkaline Phosphatase 94 Total Protein 7.0 Albumin 3.1 L Globulin 3.9 Albumin/Globulin Ratio 0.8 L Ethyl Alcohol < 3.0 Syphilis Total Ab Non-reactive HIV 1&2 Antibody Non-Reactive EKG Initial EKG: Comments: My independent interpretation of his EKG shows normal sinus rhythm with a rate of 69. No ectopy. Nonspecific ST and T wave change but no sign of infarct. AK interval, QRS duration and QTc are normal. Discharge Plan Dx/Rx/DC Orders Clinical Impression: Opiate withdrawal, Desire for detoxification, History of atrial fibrillation, Hx of prior ablation treatment Disposition Disposition: Acute Care Hospital [facility] Discharge Date/Time: 07/22/23 00:50
--- NOTE | 2023-07-21 23:34 | HP.PCM.HOS_ITS ---
HPI - General General Date of Admission: 07/22/23 Date of Service: 07/21/23 Chief Complaint: Acute Opiate Withdrawal HPI Narrative The patient is a 53 y/o M w/ PMHx: PAF, HTN, Tobacco use, Polysubstance abuse previously clean on suboxone however they have been weaning it down prompting him over the last ~ 3 weeks to transition to heroin/fentanyl (snorted, smoked) who presents to the [facility] ED on 07/21/23 with noted acute opiate withdrawal onset starting on day of presentation following last dose ~ 12 hours prior with abdominal cramping, generalized body aches, fatigue, restless leg, sweating, diaphoresis. Patient interested in attaining clean status. He notes his has no substance abuse history and he has 3 children ages 2, 4 and 6. Work-up in the ED included T96.6, heart rate 60, BP 136/97, respiratory rate 14, no percent on room air, CBC with WC 10.3, hemoglobin 13.8, platelet 318 without marked shift, CMP/UDS/ethyl alcohol level pending upon requested evaluation of patient. [facility] Medical History HTN (hypertension) PAF (paroxysmal atrial fibrillation) Polysubstance abuse Tobacco use Allergy/AdvReac Type Severity Reaction Status Date / Time No Known Allergies Allergy Verified 07/21/23 22:25 Family History (Updated 07/22/23 @ 00:[address] Niru Funez MD) Mother Heart disease Father Heart disease Surgical History (Updated 07/22/23 @ 00:[address] Niru Funez MD) H/O cardiac radiofrequency ablation Social History (Updated 07/22/23 @ 00:[address] Niru Funez MD) household members: other details: Lives at home with his , children 2/4/6 years old. Smoking Status: Current every day smoker tobacco type: cigarettes Smoking packs per day: 0.5 Smoking cigarettes per day: 10.0 alcohol intake: current alcohol intake frequency: holidays/special occasions only substance use type: opiates and other details: Heroin/Fentanyl snorted/smoked ROS ROS Narrative Admission Review of Systems: CONSTITUTIONAL: No weight loss, fever, chills, + weakness or fatigue. HEENT: Eyes: No visual loss, blurred vision, double vision or yellow sclerae. Ears, Nose, Throat: No hearing loss, sneezing, congestion, runny nose or sore throat. SKIN: No rash or itching, lesions, wounds. CARDIOVASCULAR: No chest pain, chest pressure or chest discomfort, palpitations, edema, orthopnea, syncopal events. RESPIRATORY: No shortness of breath, cough or sputum, wheezing, hemoptysis. GASTROINTESTINAL: + anorexia, nausea without vomiting, diarrhea, abdominal cramping. No melena, BRBPR. GENITOURINARY: No dysuria, frequency, urgency or retention. NEUROLOGICAL: No headache, dizziness, syncope, paralysis, ataxia, numbness or tingling in the extremities, focal weakness, change in bowel or bladder control, seizure. MUSCULOSKELETAL: + muscle, back pain, joint pain or stiffness. HEMATOLOGIC: No anemia, bleeding or bruising. LYMPHATICS: No enlarged nodes. No history of splenectomy. PSYCHIATRIC: No history of depression or anxiety. ENDOCRINOLOGIC: + reports of sweating, cold or heat intolerance. No polyuria or polydipsia. ALLERGIES: No history of asthma, hives, eczema or rhinitis. Vital Signs Vital Signs Vital Signs: 07/21/23 22:17 Temperature 96.6 F L Temperature Source Temporal Pulse Rate 90 Respiratory Rate 15 Blood Pressure 178/110 H Blood Pressure Mean 132 Pulse Ox 98 Oxygen Delivery Method Room Air Weight Weight: 165 lb Body Mass Index (BMI) 24.3 Physical Exam Narrative Physical Examination: General: Awake, alert, oriented x 3 and cooperative, seated upright in the ED bed, restless, moving about constantly. Skin: Normal color, normal turgor, no icterus, no cyanosis except occasional abrasion. HEENT: AT/NC, EOMI, PERRLA, dry MM, no carotid bruits or JVD noted. Lungs: CTA bilaterally, moderate effort, mild decrease BL bases, no rales, ronchi or wheezing. Heart: Regular rate and rhythm; no gallop, rub audible. Abdomen: Soft, very mild generalized discomfort with no rebound or guarding, ND, hyperactive BS, no HSM. Extremities: No cyanosis, clubbing, or edema. Neurological: Patient awake, alert, oriented as noted, cognitive function intact; pupils equally reactive to light and accommodation, cranial nerves II- XII grossly normal, moving all 4 extremities, no focal deficits, strength mildly global decreased, restless, flushed, mildly diaphoretic. Psychiatric: Affect appears restless, fatigued, no acute evidence of depressive or anxiety feelings. Results Lab / Micro Data 07/22/23 00:15 07/22/23 00:15 Assessment & Plan Assessment/Plan (1) Opiate withdrawal: PLAN: Plan The patient is a 53 y/o M w/ PMHx: PAF, HTN, Tobacco use, Polysubstance abuse previously clean on suboxone however they have been weaning it down prompting him over the last ~ 3 weeks to transition to heroin/fentanyl (snorted, smoked) who presents to the [facility] ED on 07/21/23 with noted acute opiate withdrawal onset. #1. Acute Opiate Withdrawal: Will admit to [facility], routine labs including CBC, CMP, urine for drug screen obtained in the ED and as noted some still pending upon evaluation, will initiate and continue on protocol with tapering course of Olson butex, as needed tylenol, ibuprofen, bowel regimen, gabapentin, Bentyl, Vistaril, methocarbamol, clonidine, PRN nightly trazodone for insomnia, IV fluids, IV antiemetics. Once patient clinically improved and completion of taper nearing will plan consultation with case management for transition to next level of rehabilitation care. #2. Polysubstance Abuse, denies IV drug abuse history: Although patient denies IV drug abuse given polysubstance abuse patient amenable to HIV, hepatitis panel and syphilis testing. If patient were to be hepatitis C positive he is currently on a candidate for treatment and will need to be clean/sober x6 months with documented attendance NA or AA meetings, counseling and ongoing negative drug screens. #3. PAF: Patient reports in the past he previously had been anticoagulated and was on metoprolol but he discontinued this, we will continue to monitor and add regimen if appropriate but currently he prefers to avoid any regimen. #4. Hypertension: Patient in the past previously on metoprolol which he had taken himself off of, BP currently above goal with elevated diastolic, will continue to monitor and may consider adding regimen if patient is amenable at that time, currently declined,. IV hydralazine in interim. #5. Tobacco Abuse: Encouraged cessation, inpatient consultation per RT, NR if desired. #6. DVT prophylaxis: Low risk for type of admission. Charges/Coding Visit Charges Inpatient E&M: 91297 Init Hosp L2
[2023-07-22] VITALS (7 sets, daily range): BP systolic 122–152; BP diastolic 76–99; PULSE 60–86; RESP 14–17; TEMP 35.9–36.7; O2SAT 97–100; BMI 23.6
[2023-07-22] MEDS: Ondansetron ODT 4 MG Tablet PO (00:08)
[2023-07-22 00:24] LABS: Absolute Lymphocyte Count 2.44 X10^3/uL (0.83-4.51); Absolute Neutrophil Count 6.8 X10^3/uL (2.0-7.7); Basophil# 0.08 X10^3/uL; Basophil% 0.8 % (0-1); Eosinophil# 0.22 X10^3/uL; Eosinophils% 2.1 % (0-5); Hematocrit 42.7 % (40-54); Hemoglobin 13.8 g/dL (13.0-16.5); Lymphocyte # 2.44 X10^3/ul (0.83-4.51); Lymphocyte % 23.8 % (19-41); Mean Corp Hgb Conc 32.3 g/dL (32-36); Mean Corpuscular Hgb 28.8 pg (27.0-32.0); Mean Corpuscular Volume 89.1 fL (80-94); Mean Platelet Vol. 10.1 fl (6.2-12.0); Monocyte# 0.69 X10^3/uL; Monocyte% 6.7 % (0-10); NRBC Flagged by Analyzer 0 % (0-5); Neutrophil # 6.79 X10^3/uL (2.7-7.7); Neutrophil % 66.3 % (47-70); Platelet Count 318 K/mm3 (150-450); RBC Distribution Width SD 45.6 fl (35.1-43.9); Red Blood Count 4.79 M/mm3 (4.6-6.2); White Blood Count 10.3 K/mm3 (4.4-11.0)
[2023-07-22 00:46] LABS: Alcohol, Blood (Medical)-Serum < 3.0 mg/dL
[2023-07-22 00:50] LABS: ALB/GLOB Ratio 0.8 RATIO (0.9-2.4); AST(SGOT) 22 U/L (15-37); Alanine Aminotransfer ALT/SGPT 32 U/L (16-61); Albumin, Serum 3.1 g/dL (3.2-5.0); Alkaline Phosphatase 94 U/L (45-117); Anion Gap 1 (5-15); BUN 16 mg/dL (7-18); BUN/Creat Ratio 23.6 RATIO (10-20); Calcium,Total 8.8 mg/dL (8.5-10.1); Chloride 105 mmol/L (98-107); Creatinine, Serum 0.68 mg/dL (0.70-1.30); EST Glomerular Filtration Rate 131 mL/min (>60); Est Glom Filt Rate - Afr Amer 159 mL/min (>60); Estimated Creatinine Clearance 128.52 ml/min; Globulin 3.9 g/dL (2.2-4.2); Glucose 127 mg/dL (74-106); Magnesium 2.2 mg/dL (1.6-2.6); Potassium 4.2 mmol/L (3.5-5.1); Sodium Level 138 mmol/L (136-145)
[2023-07-22 01:43] LABS: HIV - WCH Non-Reactive (Nonreactive); Syphilis Antibodies Non-reactive
[2023-07-22] MEDS: Lactated Ringers 1,000 ML 125 ML IV (02:43)
[2023-07-22 03:38] LABS: Hepatitis B Surface Antibody Non-Reactive; Hepatitis B Surface Antigen Non-Reactive (Nonreactive); Hepatitis C Antibody Non-Reactive (Nonreactive)
[2023-07-22] MEDS: Influenza Virus Vac Quad 23-24 60 MCG/0.5 ML SYRINGE IM (08:55)
--- NOTE | 2023-07-22 11:41 | CHAPLAIN ---
Type of Pastoral Visit _x__ Initial Visit ___ Follow-up Visit ___ On-call Visit ___ General Patient Visit ___ Spiritual Assessment ___ Family Conference ___ Bereavement ___ Rapid Response ___ Code Blue ___ Other (describe below) Pastoral Care Referral From _x__ Patient ___ Family ___ Nurse ___ Physician ___ Meter Reader Chief ___ Spinning Room Worker ___ Other (describe below) Sacrament/Intervention _x__ Active listening ___ Anointing ___ Jewish ___ Bereavement ___ Communion ___ [place] exploration ___ ___ Life review ___ Prayer ___ Reconciliation ___ Sacrament of Sick _x__ Supportive presence ___ Wedding ___ Other (describe below) Pastoral Comments patient is resting with eyes closed but awake; pt is offered presence and support; pt keeps eyes closed, states that he appreciates the offer, but is uncomfortable and just trying to stay still and sleep if possible; offer of support at another time and pt agrees that would be best
--- NOTE | 2023-07-22 14:47 | PN_ITS ---
Subjective Subjective Patient seen and examined. He had no active complaints and had an uneventful night. Review of systems is otherwise negative. Objective Data Objective Data Vital Signs: Vital Signs Temp Pulse Resp BP Pulse Ox O2 Del Method 97.8 F 73 14 147/96 H 100 Room Air 07/22/23 08:45 07/22/23 08:45 07/22/23 08:45 07/22/23 08:45 07/22/23 08:45 07/22/23 08:45 Oxygen Delivery Method Room Air Weight: 165 lb 2.02 oz Body Mass Index (BMI) 23.6 Intake & Output: Intake and Output for Last 24 Hours 07/20/23 07/21/23 07/22/23 23:59 23:59 23:59 Intake Total 1349.58 / 1349.58 Balance 1349.58 / 1349.58 Lab / Micro Data 07/22/23 00:15 07/22/23 00:15 Labs: Laboratory Results - last 24 hr 07/22/23 00:15: WBC 10.3, RBC 4.79, Hgb 13.8, Hct 42.7, MCV 89.1, MCH 28.8, MCHC 32.3, RDW Std Deviation 45.6 H, RDW Coeff of Marilu 14.0, Plt Count 318, MPV 10.1, Immature Gran % (Auto) 0.300, Neut % (Auto) 66.3, Lymph % (Auto) 23.8, [place] % (Auto) 6.7, Eos % (Auto) 2.1, Baso % (Auto) 0.8, Absolute Neuts (auto) 6.8, Absolute Lymphs (auto) 2.44, Nucleated RBC % 0, Sodium 138, Potassium 4.2, Chloride 105, Carbon Dioxide 32.0, Anion Gap 1 L, BUN 16, Creatinine 0.68 L, Estim Creat Clear Calc 128.52, Est GFR (MDRD) Af Amer 159, Est GFR (MDRD) Non-Af 131, BUN/Creatinine Ratio 23.6 H, Glucose 127 H, Calcium 8.8, Magnesium 2.2, Total Bilirubin 0.20, AST 22, ALT 32, Alkaline Phosphatase 94, Total Protein 7.0, Albumin 3.1 L, Globulin 3.9, Albumin/Globulin Ratio 0.8 L, Ethyl Alcohol < 3.0, Syphilis Total Ab Non-reactive, Hep Bs Antigen Non-Reactive, Hep Bs Antibody Non-Reactive, Hepatitis C Antibody Non-Reactive, HIV 1&2 Antibody Non- Reactive Physical Exam Const alert, oriented x3 and no apparent distress General Appearance: cooperative HEENT normocephalic, head/scalp atraumatic, moist oral mucous membranes and oropharynx normal Eyes PERRL and EOMs intact bilaterally Neck supple and no JVD Lymph Lymphatic: no lymphadenopathy noted and no lymphedema noted Resp normal respiratory effort, normal air movement and clear to auscultation bilaterally Cardio regular rate, regular rhythm, S1 normal heart sound, S2 normal heart sound and no murmurs GI normal to inspection, nondistended, normoactive bowel sounds, soft to palpation, non-tender and non-distended Extremity normal capillary refill, no clubbing, cyanosis or edema and no calf tenderness General Extremity: no tenderness to palpation of joints or extremities Skin General Skin Exam: no breakdown and turgor normal Neuro CN's II-XII intact bilaterally, no focal motor deficits, no sensory deficits noted and deep tendon reflexes 2+ bilaterally Motor Exam: strength 5/5 throughout and general weakness Psych thought process normal, cooperative and affect normal Appearance: appropriate Assessment & Plan Assessment/Plan (1) Desire for detoxification: PLAN: Plan #Acute opioid withdrawal * on opioid withdrawal protocol with buprenorphine withdrawal protocol. * Adjunctive meds for symptomatic relief. * Monitor CINA score * HIV and Hep and Hep C screen were negative. * #Paroxysmal afib * currently not anticoagulated. Says he used to be on metoprolol but doesnt take it anymore. * will monitor * #Hypertension; on metoprolol. IV hydralazine prn #Nicotine dependence: counseled to quit. Nicotine patch 21mg daily DVT prophylaxis: low risk. Encourage ambulation Charges/Coding Visit Charges Inpatient E&M: 03296 Subs Hosp L2
[2023-07-22] MEDS: Acetaminophen 325 MG Tablet 650 MG PO (16:31)
[2023-07-22] MEDS: Methocarbamol 750 MG Tablet PO (16:31)
[2023-07-22 16:48] LABS: Amphetamine Urine VISTA POSITIVE (<1000 ng/mL); Barbiturate Urine VISTA NEGATIVE (< 200 ng/mL); Benzodiazepine Urine VISTA NEGATIVE (< 200 ng/mL); Cocaine Urine VISTA NEGATIVE (< 300 ng/mL); Ecstacy Urine VISTA NEGATIVE (< 500 ng/mL); Methadone Urine VISTA NEGATIVE (< 300 ng/mL); PCP Urine VISTA NEGATIVE (< 25 ng/mL); THC Urine VISTA POSITIVE (< 50 ng/mL); Vista UDS pH Range 7
[2023-07-23] MEDS: Ibuprofen 600 MG Tablet PO ×2 (00:20→16:04)
[2023-07-23] MEDS: Methocarbamol 750 MG Tablet PO ×2 (00:20→16:05)
[2023-07-23] MEDS: Buprenorphine HCl 2 MG TAB.SUBL SL ×3 (00:48→16:04)
[2023-07-23 02:00] VITALS: BP 137/84; PULSE 79; RESP 16; TEMP 36.8; O2SAT 97
[2023-07-23 08:00] VITALS: BP 133/78; PULSE 67; RESP 14; TEMP 36.5; O2SAT 97
[2023-07-23 09:00] VITALS: O2SAT 97
--- NOTE | 2023-07-23 10:50 | ADDICTION ---
This documentation writer met with PT to conduct ASAM, MSE, AUDIT, DUDIT assessments and to plan for d/c. PT A+Ox4 and participated actively. All assessments completed and placed in PT's chart. [facility] PT did not indicate a need for transportation post d/c from [facility].
--- NOTE | 2023-07-23 12:16 | PN_ITS ---
Subjective Subjective Patient seen and examined. He has no complaints and feels well. He had an uneventful night. Review of symptoms otherwise negative. He has remained hemodynamically stable. Objective Data Objective Data Vital Signs: Vital Signs Temp Pulse Resp BP Pulse Ox O2 Del Method 97.7 F L 67 14 133/78 H 97 Room Air 07/23/23 08:00 07/23/23 08:00 07/23/23 08:00 07/23/23 08:00 07/23/23 08:00 07/23/23 08:00 Oxygen Delivery Method Room Air Weight: 165 lb 2.02 oz Body Mass Index (BMI) 23.6 Intake & Output: Intake and Output for Last 24 Hours 07/21/23 07/22/23 07/23/23 23:59 23:59 23:59 Intake Total 1349.58 / 1349.58 Balance 1349.58 / 1349.58 Lab / Micro Data 07/22/23 00:15 07/22/23 00:15 Labs: Laboratory Results - last 24 hr 07/21/23 16:00: Urine Opiates Screen NEGATIVE, Urine Methadone Screen NEGATIVE, Ur Barbiturates Screen NEGATIVE, Ur Phencyclidine Scrn NEGATIVE, Ur Amphetamines Screen POSITIVE H, MDMA (Ecstasy) Screen NEGATIVE, U Benzodiazepines Scrn NEGATIVE, Urine Cocaine Screen NEGATIVE, U Cannabinoids Screen POSITIVE H, Ur Drug Screen Comment Physical Exam Const alert, oriented x3 and no apparent distress General Appearance: cooperative HEENT normocephalic, head/scalp atraumatic, moist oral mucous membranes and oropharynx normal Eyes PERRL and EOMs intact bilaterally Neck supple and no JVD Lymph Lymphatic: no lymphadenopathy noted and no lymphedema noted Resp normal respiratory effort, normal air movement and clear to auscultation bilate rally Cardio regular rate, regular rhythm, S1 normal heart sound, S2 normal heart sound and no murmurs GI normal to inspection, nondistended, normoactive bowel sounds, soft to palpation, non-tender and non-distended Extremity normal capillary refill, no clubbing, cyanosis or edema and no calf tenderness General Extremity: no tenderness to palpation of joints or extremities Skin General Skin Exam: no breakdown and turgor normal Neuro CN's II-XII intact bilaterally, no focal motor deficits, no sensory deficits noted and deep tendon reflexes 2+ bilaterally Motor Exam: strength 5/5 throughout and general weakness Psych thought process normal, cooperative and affect normal Appearance: appropriate Assessment & Plan Assessment/Plan (1) Desire for detoxification: PLAN: Plan #Acute opioid withdrawal * on opioid withdrawal protocol with buprenorphine withdrawal protocol. * Adjunctive meds for symptomatic relief. * Monitor CINA score * HIV and Hep and Hep C screen were negative. * #Paroxysmal afib * currently not anticoagulated. Says he used to be on metoprolol but doesnt take it anymore. * will monitor * #Hypertension; on metoprolol. IV hydralazine prn #Nicotine dependence: counseled to quit. Nicotine patch 21mg daily DVT prophylaxis: low risk. Encourage ambulation Disposition: for likely DC tomorrow. Charges/Coding Visit Charges Inpatient E&M: 95538 Subs Hosp L2
[2023-07-23 22:00] VITALS: BP 135/91; PULSE 81; RESP 16; TEMP 36.2; O2SAT 99
[2023-07-24] MEDS: Buprenorphine HCl 2 MG TAB.SUBL SL ×2 (01:23→07:44)
[2023-07-24 02:00] VITALS: BP 129/90; PULSE 78; RESP 14; TEMP 36.4; O2SAT 98
[2023-07-24 07:05] VITALS: O2SAT 95
[2023-07-24 07:50] VITALS: BP 121/91; PULSE 76; RESP 14; TEMP 36.6; O2SAT 100
--- NOTE | 2023-07-24 09:44 | DCINST_ITS ---
Discharge Instructions Diet Discharge Diet: Low fat / Low cholesterol Activity Discharge Activity: Return to Normal Activity Weight Bearing Status: Weight bearing as tolerated Dressing / Incision Call your doctor if you observe: Fever of 101 or Higher, Shortness of breath, Dizziness, Swelling in the ankles, Chest pain and Increased palpitations (irregular heartbeat) Follow Up Care Test Results: Test results from this visit will be discussed in further detail at your follow- up appointment, if applicable. Discharge Plan Admission Admit Date/Time: 07/21/23 23:34 Primary Reason for Your Visit: acute alcohol withdrawal Attending Provider: Lisandra Black Primary Care Provider: Moisés Ravi Chi Consulting Providers: Niru Funez Instructions Patient Instructions: Alcohol Addiction, Alcohol Withdrawal: What to Expect Discharge Orders/Prescriptions Referrals / Follow Up: Moisés Ravi Chi, MD [Primary Care Provider] - Within 2 Weeks Disposition Disposition (needs filled in before D/C Order can be placed): Home, Self Care
--- NOTE | 2023-07-24 09:47 | DS.PCM_ITS ---
Providers Date of Admission: 07/21/23 Date of Discharge: 07/24/23 Primary Care Physician: Dr. Moisés Ravi MD Reason For Visit: ACUTE OPIATE WITHDRAWAL Diagnosis Discharge Diagnosis (1) Desire for detoxification: Status: Acute Plan #Acute opioid withdrawal * on opioid withdrawal protocol with buprenorphine withdrawal protocol. * Adjunctive meds for symptomatic relief. * Monitor CINA score * HIV and Hep and Hep C screen were negative. * #Paroxysmal afib * currently not anticoagulated. Says he used to be on metoprolol but doesnt take it anymore. * will monitor * #Hypertension; on metoprolol. IV hydralazine prn #Nicotine dependence: counseled to quit. Nicotine patch 21mg daily DVT prophylaxis: low risk. Encourage ambulation Disposition: for likely DC tomorrow. Hospital Course Operations None Procedures None Summary of Care Provided Minutes Spent on Discharge: 45 Hospital Course: Patient is a 53-year-old male with past medical history as outlined which inclu bridgette nicotine dependence and polysubstance abuse. He had been on suboxone but says she started using heroin and fentanyl some 3 weeks prior to admission. He presented to the ED with complaints of abdominal cramping, generalized body aches and fatigue as well as restless leg syndrome. He was admitted and managed for acute opioid withdrawal. He was started on p.o. withdrawal protocol with buprenorphine. He tolerated the 3-day detox process and did well. He was discharged home on 07/24/2023. He is follow-up with his primary care doctor within 1 to 2 weeks. Patient seen and examined prior to discharge. He had no complaints and had an uneventful night. Review of systems otherwise negative. Labs and vitals reviewed. Home medication reviewed and reconciled. Physical Exam Const alert, oriented x3 and no apparent distress General Appearance: cooperative and comfortable Orientation / Consciousness: awake HEENT normocephalic, head/scalp atraumatic, hearing grossly normal bilaterally, moist oral mucous membranes and oropharynx normal Mouth: oral and palatal mucosa normal Eyes PERRL and EOMs intact bilaterally Neck no lymphadenopathy, supple and no JVD Lymph Lymphatic: no lymphadenopathy noted and no lymphedema noted Resp normal respiratory effort, normal air movement, no use of accessory muscles and clear to auscultation bilaterally Cardio regular rate, regular rhythm, S1 normal heart sound, S2 normal heart sound and no murmurs GI normal to inspection, nondistended, normoactive bowel sounds, soft to palpation, non-tender and non-distended Extremity normal to inspection, full ROM, normal capillary refill, no clubbing, cyanosis or edema and no calf tenderness General Extremity: no tenderness to palpation of joints or extremities Skin General Skin Exam: no breakdown and turgor normal Neuro oriented x3, CN's II-XII intact bilaterally, moves all extremities, no focal motor deficits, no sensory deficits noted and deep tendon reflexes 2+ bilaterally Motor Exam: strength 5/5 throughout and general weakness Psych thought process normal, cooperative and affect normal Appearance: appropriate Weight / BMI Weight Weight: 165 lb 2.02 oz Body Mass Index (BMI) 23.6 ABG / Lab / Microbiology Data 07/22/23 00:15 07/22/23 00:15 D/C Instructions Discharge Diet: Low fat / Low cholesterol Weight Bearing Status: Weight bearing as tolerated Call your doctor if you observe: Fever of 101 or Higher, Shortness of breath, Dizziness, Swelling in the ankles, Chest pain and Increased palpitations (irregular heartbeat) Meaningful Use Info Meaningful Use Diagnoses (Choose all that apply): None applicable Discharge Plan Admission Admit Date/Time: 07/21/23 23:34 Primary Reason for Your Visit: acute alcohol withdrawal Attending Provider: Lisandra Black Primary Care Provider: Moisés Ravi Chi Consulting Providers: Niru Funez Instructions Patient Instructions: ED Opioid Withdrawal Discharge Orders/Prescriptions Referrals / Follow Up: Moisés Ravi Chi, MD [Primary Care Provider] - Within 2 Weeks Disposition Disposition (needs filled in before D/C Order can be placed): Home, Self Care Charges/Coding Visit Charges Inpatient E&M: 89287 Disch Hosp >30min
== END 2023-07-24 10:24 | disposition home or self-care (01) ==
LOC: ED 23:45 → ICU 07-22 07:24
PROVIDERS: Admitting Provider Family Medicine; Emergency Provider Emergency Medicine; PCP Family Medicine Geriatric Medicine; Visit Provider Student in an Organized Health Care Education/Training Program
DX: F11.23 Opioid dependence with withdrawal (principal); I48.0 Paroxysmal atrial fibrillation; F17.210 Nicotine dependence, cigarettes, uncomplicated; I10 Essential (primary) hypertension; Z23 Encounter for immunization
CPT/HCPCS: 90686; 80053; 80307; 82077; 83735; 85025; 86703; 86706; 86780; 86803; 87340; 93005; 97802; 99285; 99406; H0012; J7120

== ENCOUNTER 2023-08-15 17:44 | Emergency (ER) | payer MEDICAID, SELFPAY ==
[2023-08-15 17:46] VITALS: BP 148/93; PULSE 99; RESP 18; TEMP 38.1; O2SAT 95; BMI 24.3
[2023-08-15 17:51] VITALS: BP 148/93; PULSE 99; RESP 18; TEMP 38.1; O2SAT 95
--- NOTE | 2023-08-15 18:09 | ED.RN ---
pt states she wants to leave and she wants potassium infusion turned off. dr. holden notified and amcindy printed out at his request
[2023-08-15] MEDS: Ondansetron ODT 4 MG Tablet PO (18:20)
[2023-08-15] MEDS: Acetaminophen 325 MG Tablet 650 MG PO (18:20)
[2023-08-15 18:51] VITALS: BP 171/104; PULSE 101; RESP 18; TEMP 37.4; O2SAT 97
[2023-08-15 20:08] VITALS: BP 158/89; PULSE 98; RESP 18; TEMP 37.1; O2SAT 98
[2023-08-15 20:49] VITALS: BP 144/101; PULSE 87; RESP 18; O2SAT 99
[2023-08-15] MEDS: Ketorolac 60 MG/2 ML Vial IM (21:00)
--- NOTE | 2023-08-15 21:12 | ED.RN ---
THIS RN ATTEMPTED TO CALL PT SISTER, JUAN JOSÉ PER PT REQUEST TO OBTAIN RIDE HOME. NO ANSWER. PT REQUESTS THIS RN CALL PT MOTHER, SHARYN. PER SHARYN COLES TO CALL HEATH TO COME GET PT AT 2130. PT AWARE.
[2023-08-15 21:32] VITALS: RESP 18
--- NOTE | 2023-08-15 21:33 | ED.RN ---
PT AMBULATED TO TRIAGE/WAITING ROOM TO WAIT FOR RIDE. PT GIRLFRIEND TO COME GET HIM. SKYLER TURNER AWARE (TRIAGE NURSE).
--- NOTE | 2023-08-15 21:50 | EX.ED.DYSGE1 ---
HPI History of Present Illness Chief Complaint: Cold Sx Narrative Narrative: Patient is a 53-year-old male who is presenting with flulike symptoms since . Patient states he has been having myalgia, arthralgia, nausea with no vomiting. Patient had no diarrhea. No headache or neck pain. Patient has no sick contacts that he is aware of. Patient has no abdominal pain, no urinary complaints. No sick contacts. Patient currently lives at home with family, is not working. Patient came in by EMS because he had no ride to the ER. Patient does take Suboxone. Patient states he is not going through withdrawal from Suboxone, he takes his medication daily. PFSH PFSH Medical History Desire for detoxification History of atrial fibrillation HTN (hypertension) Opiate withdrawal PAF (paroxysmal atrial fibrillation) Polysubstance abuse Tobacco use Home Medications buprenorphine 8 mg-naloxone 2 mg sublingual film 2 film sublingual DAILY 08/15/23 [History Last Taken 08/15/23] ondansetron 4 mg disintegrating tablet 4 mg PO Q8H PRN PRN Nausea #10 tabs 08/15/23 [Rx Last Taken Unknown] Allergy/AdvReac Type Severity Reaction Status Date / Time No Known Allergies Allergy Verified 08/15/23 17:46 Family History (Updated 07/22/23 @ 00:[address] Niru Funez MD) Mother Heart disease Father Heart disease Surgical History (Updated 08/01/23 @ 00:00 by Mayito Bonilla) H/O cardiac radiofrequency ablation Hx of prior ablation treatment Social History (Updated 07/22/23 @ 00:[address] Niru Funez MD) household members: other details: Lives at home with his , children 2/4/6 years old. Smoking Status: Current every day smoker tobacco type: cigarettes alcohol intake: current alcohol intake frequency: holidays/special occasions only substance use type: opiates and other details: Heroin/Fentanyl snorted/smoked ROS ROS ED ROS Narrative REVIEW OF SYSTEMS: Unless otherwise stated in this report the patient's positive and negative responses for review of systems for constitutional, eyes, ENT, cardiovascular, respiratory, gastrointestinal, neurological, , musculoskeletal, and integument systems and related systems to the presenting problem are either stated in the history of present illness or were not pertinent or were negative for the symptoms and/or complaints related to the presenting medical problem. EXAM Physical Exam Narrative Exam Narrative: Vital signs reviewed and patient is not hypoxic. General: The patient appears well and in no apparent distress. Patient is resting comfortably on cart. Not toxic, lethargic, or listless. Skin: Warm, clammy, no pallor noted. There is no rash noted. Head: Normocephalic, atraumatic full range of motion of cervical spine with no difficulty.; No nuchal rigidity, no meningeal signs or symptoms. Eye: Normal conjunctiva, no drainage, EOMI. PERRL. Ears, Nose, Mouth, and Throat: oral mucosa is moist. Nares patent. Mouth without vesicles. Cardiovascular: Regular Rate and Rhythm, no murmurs, gallops, or rubs Respiratory: Patient is in no distress, no accessory muscle use, lungs are clear to auscultation, no wheezing, rales or rhonchi Back: non-tender, no CVA tenderness bilaterally to percussion. NO CTLS midline or paraspinal tenderness to palpation. GI: Soft, no tenderness to palpation, no masses appreciated. No rebound, guarding, or rigidity noted. Musculoskeletal: The patient has full range of motion of all extremities and joints with no difficulty. Patient has no motor, no sensory deficits. Neurological: A&O x4, normal speech, no focal neurological deficits. Psychiatric: Cooperative Const Vital Signs: 08/15/23 17:46 08/15/23 17:46 08/15/23 17:51 Temperature 100.6 F H 100.6 F H Temperature Source Oral Oral Pulse Rate 99 99 Respiratory Rate 18 18 Respiratory Effort Normal Non-Labored Respiratory Pattern Normal Blood Pressure 148/93 H 148/93 H Blood Pressure Mean 111 111 Pulse Ox 95 95 Oxygen Delivery Method Room Air 08/15/23 18:51 08/15/23 20:08 08/15/23 20:49 Temperature 99.3 F H 98.8 F Temperature Source Oral Oral Pulse Rate 101 H 98 87 Respiratory Rate 18 18 18 Respiratory Effort Respiratory Pattern Blood Pressure 171/104 H 158/89 H 144/101 H Blood Pressure Mean 126 112 115 Pulse Ox 97 98 99 Oxygen Delivery Method Room Air Room Air 08/15/23 21:32 Temperature Temperature Source Pulse Rate Respiratory Rate 18 Respiratory Effort Respiratory Pattern Blood Pressure Blood Pressure Mean Pulse Ox Oxygen Delivery Method Room Air MDM MDM MDM Narrative Medical decision making narrative: Patient's COVID test was negative. Patient was not nauseous in the ER. Patient was given shot of Toradol to help with myalgias and arthralgia. Patient was sent home with a prescription for Zofran to help increase fluids at home. Patient will follow-up with PCP. No questions at discharge. Lab Data Attestation: I reviewed the patient's lab results. Lab results narrative: COVID-negative Discharge Plan Triage Chief Complaint: Cold Sx ED Provider: Christiano Burden Dx/Rx/DC Orders Clinical Impression: Flu-like symptoms Instructions: ED Myalgias, ED Viral Syndrome (Adult), ED Vomiting (Adult) Prescriptions: New ondansetron [ondansetron] 4 mg tablet,disintegrating 4 mg PO Q8H PRN PRN (Reason: Nausea) Qty: 10 0RF No Action buprenorphine-naloxone 8-2 mg film 2 film sublingual DAILY Patient Comments: PLACE 2 STRIPS UNDER THE TONGUE ONCE DAILY Primary Care Provider: Moisés Ravi Chi Referrals: Moisés Ravi Chi, MD [Primary Care Provider] - Activity Restrictions/Additional Instructions: Use DayQuil, NyQuil, Flonase. Use Tylenol Motrin. Use nausea medication as needed to help increase fluids at home. Follow-up with PCP for additional care as needed Disposition Disposition: Home, Self Care Discharge Date/Time: 08/15/23 21:34
== END 2023-08-15 21:34 | disposition home or self-care (01) ==
PROVIDERS: Emergency Provider Emergency Medicine; PCP Family Medicine Geriatric Medicine; Visit Provider Emergency Medicine
DX: M79.10 Myalgia, unspecified site (principal); R11.0 Nausea; F17.210 Nicotine dependence, cigarettes, uncomplicated
CPT/HCPCS: 87811; 96372; 99285

== ENCOUNTER 2023-12-31 16:54 | Inpatient (IN) | payer MEDICAID, SELFPAY ==
[2023-12-31 16:55] VITALS: BP 150/104; PULSE 101; RESP 16; TEMP 36.1; O2SAT 99
[2023-12-31 17:25] VITALS: BMI 25.0
[2023-12-31 18:22] LABS: Absolute Lymphocyte Count 2.71 X10^3/uL (0.83-4.51); Absolute Neutrophil Count 9.1 X10^3/uL (2.0-7.7); Basophil# 0.07 X10^3/uL; Basophil% 0.5 % (0-1); Eosinophil# 0.12 X10^3/uL; Eosinophils% 0.9 % (0-5); Hematocrit 45.1 % (40-54); Hemoglobin 14.6 g/dL (13.0-16.5); Lymphocyte # 2.71 X10^3/ul (0.83-4.51); Lymphocyte % 21.3 % (19-41); Mean Corp Hgb Conc 32.4 g/dL (32-36); Mean Corpuscular Hgb 28.3 pg (27.0-32.0); Mean Corpuscular Volume 87.4 fL (80-94); Mean Platelet Vol. 11.1 fl (6.2-12.0); Monocyte% 5.5 % (0-10); NRBC Flagged by Analyzer 0 % (0-5); Neutrophil # 9.09 X10^3/uL (2.7-7.7); Neutrophil % 71.4 % (47-70); Platelet Count 352 K/mm3 (150-450); RBC Distribution Width CV 13.2 % (11.6-14.6); RBC Distribution Width SD 41.9 fl (35.1-43.9); Red Blood Count 5.16 M/mm3 (4.6-6.2); White Blood Count 12.7 K/mm3 (4.4-11.0)
--- NOTE | 2023-12-31 18:27 | EX.ED.DYSGE1 ---
HPI <DAIN Bond - Last Filed: 12/31/23 19:29> History of Present Illness Chief Complaint: Substance Abuse Narrative Narrative: Patient is a 53-year-old male with no significant medical history who currently lives in a house who presents to the emergency department for detox from fentanyl. Patient states that he uses it 2-3 times per day, patient states that he usually smokes it or snorts it however he does inject it from time to time. Patient dates has been using fentanyl for a total of 2 years. Patient was seen here 1 year ago and had something similar where he tried to get clean however immediately upon discharge he started using again. Patient states that he does have some goals in his life such as seeing his kids again, however he cannot do that when he is on fentanyl. He has not used fentanyl in the last 12 to 14 hours, he started to feel shaky, nausea and having sweating. PFSH <DAIN Bond - Last Filed: 12/31/23 19:29> PFS Medical History Desire for detoxification History of atrial fibrillation HTN (hypertension) Opiate withdrawal PAF (paroxysmal atrial fibrillation) Polysubstance abuse Tobacco use Home Medications buprenorphine 8 mg-naloxone 2 mg sublingual film 2 film sublingual DAILY 08/15/23 [History Last Taken 08/15/23] Allergy/AdvReac Type Severity Reaction Status Date / Time No Known Allergies Allergy Verified 12/31/23 16:59 Family History Mother Heart disease Father Heart disease Surgical History H/O cardiac radiofrequency ablation Hx of prior ablation treatment Social History household members: other details: Lives at home with his , children 2/4/6 years old. Smoking Status: Current every day smoker tobacco type: cigarettes alcohol intake: current alcohol intake frequency: holidays/special occasions only substance use type: opiates and other details: Heroin/Fentanyl snorted/smoked ROS <DAIN Bond - Last Filed: 12/31/23 19:29> ROS ED ROS Narrative Constitutional: Negative for fever, weight loss, weakness. Positive for chills Eyes: Negative for vision loss, vision change, double vision ENT: Negative for any sore throat, ear pain, congestion Cardiovascular: Negative for any chest pain, tightness, palpitations Respiratory: Negative for any cough, sputum production, hemoptysis, dyspnea, dyspnea on exertion, orthopnea Gastrointestinal: Negative for any abdominal pain, vomiting, diarrhea, constipation, blood in stool, blood in vomit. Positive for nausea : Negative for any urinary frequency, dysuria, retention, blood in urine Muscle skeletal: Negative for any neck pain, back pain. Positive for lower leg cramps Neurological: Negative for any headache, syncope, dizziness. Positive for feeling shaky Skin: Negative for any rashes, itching, abrasions, lacerations Psychiatric: Negative for any depression, anxiety, stress, suicidal ideation, homicidal ideation Hematologic: Negative for any excessive bruising, easy bleeding EXAM <DAIN Bond - Last Filed: 12/31/23 19:29> Physical Exam Narrative Exam Narrative: Vital signs reviewed. Patient does appear unkempt. Patient looks anxious. HEET: Head normocephalic atraumatic, TMs clear bilaterally. Posterior pharynx is clear, moist mucous membranes. Nares clear bilaterally. Neck: Supple with no lymphadenopathy or tenderness. No signs of meningismus. Cardiac: Tachycardic rate no murmurs gallops or rubs, equal peripheral pulses bilaterally. Respiratory: Lungs clear to auscultation bilaterally. No chest tenderness. Abdomen: Soft, nontender, nondistended. No abdominal bruit or pulsatile masses. No hepatosplenomegaly Extremities: No peripheral edema, no signs of gross trauma or deformity. Active full range of motion of all extremities. Neuro: Cranial nerves II through XII intact, no focal neurological deficits. Skin: Clean dry and intact with no rash, purpura, petechiae, vesicles or pustules. Backs/flank: No CVA tenderness, no midline spinal tenderness, no deformity. Psych: Normal mood and affect. No SI, HI or acute psychosis. Const Vital Signs: 12/31/23 16:55 Temperature 97.0 F L Temperature Source Temporal Pulse Rate 101 H Respiratory Rate 16 Blood Pressure 150/104 H Blood Pressure Mean 119 Pulse Ox 99 Oxygen Delivery Method Room Air Positive unkempt General Appearance ED: unkempt Psych Appearance: unkempt <Dr. Diego Chan, DO - Last Filed: 12/31/23 20:26> Physical Exam Const Vital Signs: 12/31/23 16:55 Temperature 97.0 F L Temperature Source Temporal Pulse Rate 101 H Respiratory Rate 16 Blood Pressure 150/104 H Blood Pressure Mean 119 Pulse Ox 99 Oxygen Delivery Method Room Air MDM <Jesse Soto DESIGN CENTER CONSULTANT-C - Last Filed: 12/31/23 19:29> [facility] Lab Data Labs: Laboratory Results - last 24 hr 12/31/23 17:35 WBC 12.7 H RBC 5.16 Hgb 14.6 Hct 45.1 MCV 87.4 MCH 28.3 MCHC 32.4 RDW Std Deviation 41.9 RDW Coeff of Marilu 13.2 Plt Count 352 MPV 11.1 Immature Gran % (Auto) 0.400 Neut % (Auto) 71.4 H Lymph % (Auto) 21.3 Comal % (Auto) 5.5 Eos % (Auto) 0.9 Baso % (Auto) 0.5 Absolute Neuts (auto) 9.1 H Absolute Lymphs (auto) 2.71 Nucleated RBC % 0 Sodium 141 Potassium 3.5 Chloride 105 Carbon Dioxide 34.0 H Anion Gap 2 L BUN 10 Creatinine 0.79 Estim Creat Clear Calc 110.62 Est GFR (MDRD) Af Amer 132 Est GFR (MDRD) Non-Af 109 BUN/Creatinine Ratio 12.6 Glucose 104 Calcium 8.9 Urine Opiates Screen NEGATIVE Urine Methadone Screen NEGATIVE Ur Barbiturates Screen NEGATIVE Ur Phencyclidine Scrn NEGATIVE Ur Amphetamines Screen NEGATIVE MDMA (Ecstasy) Screen NEGATIVE U Benzodiazepines Scrn NEGATIVE Urine Cocaine Screen NEGATIVE U Cannabinoids Screen POSITIVE H Ur Drug Screen Comment Ethyl Alcohol 3.0 Treatment and Re-Evaluation :: Differential diagnosis includes however is not limited to: Detox, medication withdrawal, polypharmacy withdrawal, fentanyl withdrawal, Patient appears to be slightly anxious, pacing around the room however patient is in no distress, vital signs are stable. Patient presents to the emergency department with wanting detox from fentanyl. Patient states he has not used in 12 to 14 hours, he is starting to feel the withdrawal symptoms such as sweating, feeling nausea, muscle aches and itching. Patient CBC shows a leukocytosis 12.7, no anemia. Patient's chemistry shows normal kidney function. Patient's toxicology shows positive for cannabinoid. No alcohol, no amphetamines which she has been in the past. I spoke with the hospitalist, patient be admitted to [facility] for fentanyl detox. Patient is agreeable. Patient stable for admission <Dr. Diego Chan, DO - Last Filed: 12/31/23 20:26> [facility] Narrative Medical decision making narrative: Differential diagnosis includes however is not limited to: Detox, medication withdrawal, polypharmacy withdrawal, fentanyl withdrawal, Patient appears to be slightly anxious, pacing around the room however patient is in no distress, vital signs are stable. Patient presents to the emergency department with wanting detox from fentanyl. Patient states he has not used in 12 to 14 hours, he is starting to feel the withdrawal symptoms such as sweating, feeling nausea, muscle aches and itching. Patient CBC shows a leukocytosis 12.7, no anemia. Patient's chemistry shows normal kidney function. Patient's toxicology shows positive for cannabinoid. No alcohol, no amphetamines which she has been in the past. I spoke with the hospitalist, patient be admitted to [facility] for fentanyl detox. Patient is agreeable. Patient stable for admission This patient was seen with a PA/DESIGN CENTER CONSULTANT Individually assessed they patient including history and physical. I have reviewed everything on the chart that is available and agree with the documentation provided by the PA/DESIGN CENTER CONSULTANT including discussion about the assessment, treatment plan, discussion, and return precautions. Patient presenting for detox. Screening lab work was not obtained. Pneumothorax on the right patient positive clinical ankle. EtOH negative. Patient states he is feeling like he is withdrawing. We attempted to give him Buprenorphine after speaking with the hospitalist although there was some problem with giving him medication in the ER as it was not in the Pyxis. Patient will be medicated we will do stairs. Impression: 1. Chest opioid detox 2. History of fentanyl with abuse Lab Data Attestation: I reviewed the patient's lab results. Labs: Laboratory Results - last 24 hr 12/31/23 17:35 WBC 12.7 H RBC 5.16 Hgb 14.6 Hct 45.1 MCV 87.4 MCH 28.3 MCHC 32.4 RDW Std Deviation 41.9 RDW Coeff of Marilu 13.2 Plt Count 352 MPV 11.1 Immature Gran % (Auto) 0.400 Neut % (Auto) 71.4 H Lymph % (Auto) 21.3 Comal % (Auto) 5.5 Eos % (Auto) 0.9 Baso % (Auto) 0.5 Absolute Neuts (auto) 9.1 H Absolute Lymphs (auto) 2.71 Nucleated RBC % 0 Sodium 141 Potassium 3.5 Chloride 105 Carbon Dioxide 34.0 H Anion Gap 2 L BUN 10 Creatinine 0.79 Estim Creat Clear Calc 110.62 Est GFR (MDRD) Af Amer 132 Est GFR (MDRD) Non-Af 109 BUN/Creatinine Ratio 12.6 Glucose 104 Calcium 8.9 Urine Opiates Screen NEGATIVE Urine Methadone Screen NEGATIVE Ur Barbiturates Screen NEGATIVE Ur Phencyclidine Scrn NEGATIVE Ur Amphetamines Screen NEGATIVE MDMA (Ecstasy) Screen NEGATIVE U Benzodiazepines Scrn NEGATIVE Urine Cocaine Screen NEGATIVE U Cannabinoids Screen POSITIVE H Ur Drug Screen Comment Ethyl Alcohol 3.0 Discharge Plan Dx/Rx/DC Orders Clinical Impression: Opiate abuse, continuous Disposition Disposition: Acute Care Hospital [facility] Discharge Date/Time: 12/31/23 20:06
[2023-12-31 18:36] LABS: Anion Gap 2 (5-15); BUN 10 mg/dL (7-18); BUN/Creat Ratio 12.6 RATIO (10-20); Calcium,Total 8.9 mg/dL (8.5-10.1); Chloride 105 mmol/L (98-107); Creatinine, Serum 0.79 mg/dL (0.70-1.30); EST Glomerular Filtration Rate 109 mL/min (>60); Est Glom Filt Rate - Afr Amer 132 mL/min (>60); Estimated Creatinine Clearance 110.62 ml/min; Glucose 104 mg/dL (74-106); Potassium 3.5 mmol/L (3.5-5.1); Sodium Level 141 mmol/L (136-145)
[2023-12-31 18:43] LABS: Amphetamine Urine VISTA NEGATIVE (<1000 ng/mL); Barbiturate Urine VISTA NEGATIVE (< 200 ng/mL); Benzodiazepine Urine VISTA NEGATIVE (< 200 ng/mL); Cocaine Urine VISTA NEGATIVE (< 300 ng/mL); Ecstacy Urine VISTA NEGATIVE (< 500 ng/mL); Methadone Urine VISTA NEGATIVE (< 300 ng/mL); PCP Urine VISTA NEGATIVE (< 25 ng/mL); THC Urine VISTA POSITIVE (< 50 ng/mL); Vista UDS pH Range 7
--- NOTE | 2023-12-31 19:20 | PCM.HP.STD ---
[facility] - General General Date of Admission: 12/31/23 Date of Service: 12/31/23 Chief Complaint: Wants help with Fentanyl Detox. HPI Narrative DHARMESH BALBUENA, is a 53 M with a past medical history of essential hypertension, tobacco abuse, cannabis abuse, history of PAF; s/p ablation and Chronic Fentanyl Abuse for the past ~2 years who presents to [facility] ER complaining of wanting help with Fentanyl detox. Mr. Balbuena reports his symptoms began approximately 14 hours prior to arrival when he last used fentanyl. He states he routinely uses 2-3 times per day primarily via smoking or snorting - but he does admits to occasional IVDA. He had been admitted to a previous admission for fentanyl detox but he immediately relapsed after being discharged. Since his last use he endorses symptoms of jitteriness, nausea and sweating but he denies fever or vomiting. In the ER he was diagnosed with acute fentanyl withdrawal in the setting of chronic fentanyl abuse and he was then admitted to the general medical floor for ongoing care for a stay that is expected to be greater than 48 hours. [facility] Medical History Desire for detoxification History of atrial fibrillation HTN (hypertension) Opiate withdrawal PAF (paroxysmal atrial fibrillation) Polysubstance abuse Tobacco use Home Medications buprenorphine 8 mg-naloxone 2 mg sublingual film 2 film sublingual DAILY 08/15/23 [History Last Taken 08/15/23] Allergy/AdvReac Type Severity Reaction Status Date / Time No Known Allergies Allergy Verified 12/31/23 16:59 Family History Mother Heart disease Father Heart disease Surgical History H/O cardiac radiofrequency ablation Hx of prior ablation treatment Social History household members: other details: Lives at home with his , children 2/4/6 years old. Smoking Status: Current every day smoker tobacco type: cigarettes alcohol intake: current alcohol intake frequency: holidays/special occasions only substance use type: opiates and other details: Heroin/Fentanyl snorted/smoked ROS ROS Narrative Review of systems: General: Patient admits to chills but denies fever or weight loss. HENT: Denies headache, denies stuffy nose, denies sore throat EYES: Denies changes in vision or discharge from eyes. Resp: Denies cough, denies shortness of breath Cardiac: Denies chest pain or palpitations GI: Denies abdominal pain, denies changes in bowel, had some nausea but denies vomiting. : Denies changes in urination Extremity: Denies swelling Musculoskeletal: Feels somewhat generally weak and unwell Neuro: Denies any numbness/tingling Heme: Denies any bleeding or bruising Skin: Denies rashes Psychiatric: Patient eventually became severely agitated requiring multiple doses of antipsychotic medications and Precedex with transferred to the ICU. Endocrine: No polyuria, polydipsia or polyphagia. The rest of the 14 point ROS was negative except for positives in HPI. Vital Signs Vital Signs Vital Signs: 12/31/23 16:55 Temperature 97.0 F L Temperature Source Temporal Pulse Rate 101 H Respiratory Rate 16 Blood Pressure 150/104 H Blood Pressure Mean 119 Pulse Ox 99 Oxygen Delivery Method Room Air Weight Weight: 169 lb 8.568 oz Body Mass Index (BMI) 25.0 Physical Exam Const alert, oriented x3 and average body habitus General Appearance: cooperative HEENT normocephalic, head/scalp atraumatic, hearing grossly normal bilaterally and moist oral mucous membranes Eyes PERRL and EOMs intact bilaterally Neck no lymphadenopathy and supple Resp normal respiratory effort, no retractions, no use of accessory muscles and clear to auscultation bilaterally Cardio regular rate and regular rhythm GI normal to inspection, nondistended, normoactive bowel sounds, soft to palpation, non-tender and non-distended Extremity normal to inspection and full ROM Skin Skin Narrative: Patient has no evidence of rash at this time. Neuro oriented x3, CN's II-XII intact bilaterally, moves all extremities and no focal motor deficits Sensorium / Orientation: awake, alert, oriented to person, oriented to place and oriented to time Speech: speech normal Motor Exam: strength 5/5 throughout Psych Psych Narrative: Patient is anxious and agitated. Mood & Affect: anxious Results Medical Records Data Attestation: I reviewed the patient's medical records Lab / Micro Data Attestation: I reviewed the patient's lab results. 12/31/23 17:35 12/31/23 17:35 Labs: Laboratory Results - last 24 hr 12/31/23 17:35: WBC 12.7 H, RBC 5.16, Hgb 14.6, Hct 45.1, MCV 87.4, MCH 28.3, MCHC 32.4, RDW Std Deviation 41.9, RDW Coeff of Marilu 13.2, Plt Count 352, MPV 11.1, Immature Gran % (Auto) 0.400, Neut % (Auto) 71.4 H, Lymph % (Auto) 21.3, [place] % (Auto) 5.5, Eos % (Auto) 0.9, Baso % (Auto) 0.5, Absolute Neuts (auto) 9.1 H, Absolute Lymphs (auto) 2.71, Nucleated RBC % 0, Sodium 141, Potassium 3.5, Chloride 105, Carbon Dioxide 34.0 H, Anion Gap 2 L, BUN 10, Creatinine 0.79, Estim Creat Clear Calc 110.62, Est GFR (MDRD) Af Amer 132, Est GFR (MDRD) Non-Af 109, BUN/Creatinine Ratio 12.6, Glucose 104, Calcium 8.9, Urine Opiates Screen NEGATIVE, Urine Methadone Screen NEGATIVE, Ur Barbiturates Screen NEGATIVE, Ur Phencyclidine Scrn NEGATIVE, Ur Amphetamines Screen NEGATIVE, MDMA (Ecstasy) Screen NEGATIVE, U Benzodiazepines Scrn NEGATIVE, Urine Cocaine Screen NEGATIVE, U Cannabinoids Screen POSITIVE H, Ur Drug Screen Comment , Ethyl Alcohol 3.0 Assessment & Plan Assessment/Plan (1) Alcohol withdrawal delirium, acute, hyperactive: (2) Opiate abuse, continuous: (3) Desire for detoxification: PLAN: Plan 1. Acute Fentanyl Withdrawal with severe acute delirium and agitation in the setting of Chronic Fentanyl Abuse with patient expressing desire to undergo opiate detoxification - Admit to general medical floor under the opiate detox protocol. Give Tylenol prn pain or fever. 2. Tobacco abuse - Tobacco cessation will be strongly encouraged with Nicotine patch offered to control cravings. 3. Essential hypertension - Give IV Hydralazine for systolic blood pressure > 160 mm Hg. 4. Cannabis abuse - Cannabis cessation will be strongly encouraged. 5. History of PAF; s/p ablation - Noted. 6. DVT prophylaxis - Lovenox 40 mg sq daily. Total time: Approximately 55 minutes. Charges/Coding Visit Charges Inpatient E&M: 62926 Init Hosp L2
[2023-12-31 19:41] VITALS: BP 172/111; PULSE 98; RESP 24; TEMP 36.1; O2SAT 100
--- NOTE | 2023-12-31 20:05 | ED.RN ---
pt restless in room, diaphoretic. notified Dr. Chan who stated to ask Dr. Holloway what to order. hospitalist was notified and ordered Butrans patch. pharmacy notified to please verify and send to med surg 3. pt is being transported to med surg floor. Called and spoke to Delicia HOLLAND to update.
[2023-12-31 20:10] VITALS: BMI 24.3
[2023-12-31 20:16] VITALS: BP 172/137; PULSE 88; RESP 17; TEMP 36.6; O2SAT 100
[2023-12-31] MEDS: Methocarbamol 750 MG Tablet PO (20:41)
[2023-12-31] MEDS: traZODone 100 MG Tablet PO (20:41)
[2023-12-31] MEDS: cloNIDine HCl 0.1 MG Tablet PO (20:41)
[2023-12-31] MEDS: Gabapentin 300 MG Capsule PO (20:42)
[2023-12-31] MEDS: Buprenorphine HCl 2 MG TAB.SUBL SL (20:51)
[2023-12-31] MEDS: hydrOXYzine PAM 25 MG Capsule 50 MG PO (21:12)
[2023-12-31] MEDS: hydrOXYzine 50 MG/ML Vial 100 MG IM (21:48)
[2023-12-31 23:31] VITALS: BP 185/124; PULSE 97; RESP 18; TEMP 36.6; O2SAT 100
[2023-12-31 23:41] VITALS: BP 182/124; PULSE 100
[2023-12-31] MEDS: LORazepam 2 MG/ML Syringe IV (23:41)
[2023-12-31] MEDS: hydrALAZINE 20 MG/ML Vial 10 MG IV (23:41)
--- NOTE | 2023-12-31 23:45 | NURSING ---
PT remains restless and all over the bed. dr moreau at the bedside. ativan given
[2024-01-01] VITALS (23 sets, daily range): BP systolic 88–177; BP diastolic 62–118; PULSE 58–116; RESP 14–29; TEMP 36.5–36.9; O2SAT 94–100; BMI 24.3
--- NOTE | 2024-01-01 00:33 | NURSING ---
report called to haritha in ed
--- NOTE | 2024-01-01 01:00 | NURSING ---
Patient arrived as a transfer from [facility]. Patient is hallucinating, sweaty, erratic, pulling at PIV, and not being cooperative with care. Patient thrashing about in bed. Notified Dr. Rivera of patient condition and received order for restraints and precedex drip.
[2024-01-01] MEDS: dexMEDEtomidine 400 MCG in 0.9% Normal Saline (100mL Bag) 96 ML 9.3 MCG CONT INF (01:02)
[2024-01-01] MEDS: Ziprasidone IM 20 MG/ML VIAL IM (01:59)
[2024-01-01] MEDS: dexMEDEtomidine 400 MCG in 0.9% Normal Saline (100mL Bag) 96 ML 28 MCG CONT INF ×2 (04:03→07:51)
[2024-01-01] MEDS: Enoxaparin 40 MG/0.4 ML Syringe SC (07:53)
[2024-01-01] MEDS: Gabapentin 300 MG Capsule PO (10:00)
[2024-01-01] MEDS: Dexmedetomidine 1,000 mcg in 0.9% NS 240 mL 28 MCG CONT INF ×2 (10:58→19:29)
[2024-01-01] MEDS: Buprenorphine HCl 2 MG TAB.SUBL SL ×2 (12:43→21:28)
[2024-01-01] MEDS: cloNIDine HCl 0.1 MG Tablet PO (12:48)
[2024-01-01] MEDS: hydrOXYzine PAM 25 MG Capsule 50 MG PO (12:48)
--- NOTE | 2024-01-01 14:40 | PN_ITS ---
Subjective Subjective Patient seen and examined. He was drowsy, lying in bed. Unable to do review of systems as he was quite drowsy.l He was on room air. Objective Data Objective Data Vital Signs: Vital Signs Temp Pulse Resp BP Pulse Ox O2 Del Method 98.4 F 62 18 113/80 98 Room Air 01/01/24 14:00 01/01/24 14:00 01/01/24 14:00 01/01/24 14:00 01/01/24 14:00 01/01/24 14:00 Oxygen Delivery Method Room Air Weight: 164 lb 8 oz Body Mass Index (BMI) 24.3 Intake & Output: Intake and Output for Last 24 Hours 12/30/23 12/31/23 01/01/24 23:59 23:59 23:59 Intake Total 1000 / 1000 303.38 / 303.38 Balance 1000 / 1000 303.38 / 303.38 Lab / Micro Data 12/31/23 17:35 12/31/23 17:35 Labs: Laboratory Results - last 24 hr 12/31/23 17:35: WBC 12.7 H, RBC 5.16, Hgb 14.6, Hct 45.1, MCV 87.4, MCH 28.3, MCHC 32.4, RDW Std Deviation 41.9, RDW Coeff of Marilu 13.2, Plt Count 352, MPV 11.1, Immature Gran % (Auto) 0.400, Neut % (Auto) 71.4 H, Lymph % (Auto) 21.3, [place] % (Auto) 5.5, Eos % (Auto) 0.9, Baso % (Auto) 0.5, Absolute Neuts (auto) 9.1 H, Absolute Lymphs (auto) 2.71, Nucleated RBC % 0, Sodium 141, Potassium 3.5, Chloride 105, Carbon Dioxide 34.0 H, Anion Gap 2 L, BUN 10, Creatinine 0.79, Estim Creat Clear Calc 110.62, Est GFR (MDRD) Af Amer 132, Est GFR (MDRD) Non-Af 109, BUN/Creatinine Ratio 12.6, Glucose 104, Calcium 8.9, Urine Opiates Screen NEGATIVE, Urine Methadone Screen NEGATIVE, Ur Barbiturates Screen NEGATIVE, Ur Phencyclidine Scrn NEGATIVE, Ur Amphetamines Screen NEGATIVE, MDMA (Ecstasy) Screen NEGATIVE, U Benzodiazepines Scrn NEGATIVE, Urine Cocaine Screen NEGATIVE, U Cannabinoids Screen POSITIVE H, Ur Drug Screen Comment , Ethyl Alcohol 3.0 Physical Exam Const Constitutional Narrative: drowsy, unable to wake up to stimulation Orientation / Consciousness: lethargic HEENT normocephalic and head/scalp atraumatic Eyes PERRL and EOMs intact bilaterally Lymph Lymphatic: no lymphadenopathy noted and no lymphedema noted Resp normal respiratory effort, normal air movement and clear to auscultation bilaterally Cardio regular rate, regular rhythm, S1 normal heart sound, S2 normal heart sound and no murmurs GI normal to inspection, nondistended, normoactive bowel sounds, soft to palpation, non-tender and non-distended Extremity normal capillary refill, no clubbing, cyanosis or edema and no calf tenderness General Extremity: no tenderness to palpation of joints or extremities Neuro CN's II-XII intact bilaterally, no focal motor deficits and no sensory deficits noted Motor Exam: general weakness Psych Psych Narrative: lethargic, drowsy Assessment & Plan Assessment/Plan (1) Alcohol withdrawal delirium, acute, hyperactive: (2) Opiate abuse, continuous: PLAN: Plan #Acute opioid withdrawal * Patient uses fentanyl chronically. Currently on opioid withdrawal protocol with buprenorphine. * Adjunctive meds for symptomatic relief. * #Acute encephalopathy likely due to acute opioid withdrawal * Management as above. Aspiration precautions. * #Benign essential hypertension: IV hydralazine as needed #History of paroxysmal A-fib: Status post ablation, stable DVT prophylaxis: Lovenox Charges/Coding Visit Charges Inpatient E&M: [address] [facility] Hosp L3
[2024-01-02] VITALS (17 sets, daily range): BP systolic 98–150; BP diastolic 62–91; PULSE 54–79; RESP 17–22; TEMP 36.6–37.1; O2SAT 96–100; BMI 24.9
[2024-01-02] MEDS: Dexmedetomidine 1,000 mcg in 0.9% NS 240 mL 16.8 MCG CONT INF (05:00)
[2024-01-02] MEDS: Buprenorphine HCl 2 MG TAB.SUBL SL ×3 (05:37→21:35)
[2024-01-02] MEDS: Enoxaparin 40 MG/0.4 ML Syringe SC (08:39)
[2024-01-02] MEDS: hydrOXYzine PAM 25 MG Capsule 50 MG PO ×2 (08:43→16:29)
[2024-01-02] MEDS: cloNIDine HCl 0.1 MG Tablet PO ×2 (08:44→16:29)
[2024-01-02] MEDS: Gabapentin 300 MG Capsule PO ×2 (08:44→16:29)
--- NOTE | 2024-01-02 10:05 | PN_ITS ---
Subjective Subjective Patient seen and examined. He is much more alert and communicative today. He was comfortably eating breakfast. Review of systems is otherwise negative. Objective Data Objective Data Vital Signs: Vital Signs Temp Pulse Resp BP Pulse Ox O2 Del Method 97.9 F 77 18 98/62 99 Room Air 01/02/24 05:00 01/02/24 10:00 01/02/24 10:00 01/02/24 10:00 01/02/24 10:00 01/02/24 10:00 Oxygen Delivery Method Room Air Weight: 168 lb 3.403 oz Body Mass Index (BMI) 24.9 Intake & Output: Intake and Output for Last 24 Hours 12/31/23 01/01/24 01/02/24 23:59 23:59 23:59 Intake Total 1000 / 1000 583.38 / 1031.38 612.91 / 612.91 Output Total 0 / 50 50 / 50 Balance 1000 / 1000 583.38 / 981.38 562.91 / 562.91 Lab / Micro Data 12/31/23 17:35 12/31/23 17:35 Physical Exam Const alert, oriented x3, no apparent distress and average body habitus General Appearance: cooperative HEENT normocephalic, head/scalp atraumatic, hearing grossly normal bilaterally and moist oral mucous membranes Eyes PERRL and EOMs intact bilaterally Neck no lymphadenopathy and supple Lymph Lymphatic: no lymphadenopathy noted and no lymphedema noted Resp normal respiratory effort, normal air movement, no retractions, no use of accessory muscles and clear to auscultation bilaterally Cardio regular rate, regular rhythm, S1 normal heart sound, S2 normal heart sound and no murmurs GI normal to inspection, nondistended, normoactive bowel sounds, soft to palpation, non-tender and non-distended Extremity normal to inspection, full ROM, normal capillary refill, no clubbing, cyanosis or edema and no calf tenderness General Extremity: no tenderness to palpation of joints or extremities Neuro oriented x3, CN's II-XII intact bilaterally, moves all extremities, no focal motor deficits and no sensory deficits noted Sensorium / Orientation: awake, alert, oriented to person, oriented to place and oriented to time Speech: speech normal Motor Exam: strength 5/5 throughout and general weakness Psych affect normal Appearance: appropriate Assessment & Plan Assessment/Plan (1) Alcohol withdrawal delirium, acute, hyperactive: (2) Opiate abuse, continuous: PLAN: Plan #Acute opioid withdrawal * Patient uses fentanyl chronically. Currently on opioid withdrawal protocol with buprenorphine. * Adjunctive meds for symptomatic relief. * #Acute encephalopathy likely due to acute opioid withdrawal * Management as above. Aspiration precautions. * #Benign essential hypertension: IV hydralazine as needed #History of paroxysmal A-fib: Status post ablation, stable DVT prophylaxis: Lovenox Charges/Coding Visit Charges Inpatient E&M: 48732 Subs Hosp L2
[2024-01-03 01:30] VITALS: BP 149/88; PULSE 72; RESP 18; TEMP 36.9; O2SAT 97
[2024-01-03] MEDS: traZODone 100 MG Tablet PO (02:20)
[2024-01-03] MEDS: Methocarbamol 750 MG Tablet PO (02:21)
[2024-01-03] MEDS: Ondansetron 8 MG Tablet PO ×2 (02:49→14:44)
[2024-01-03 03:17] VITALS: BMI 24.7
[2024-01-03] MEDS: Buprenorphine HCl 2 MG TAB.SUBL SL (08:34)
[2024-01-03 08:39] VITALS: BP 161/84; PULSE 76; RESP 18; TEMP 36.9; O2SAT 100
--- NOTE | 2024-01-03 09:49 | ADDICTION ---
clinician met with client; he presented as anxious as evidenced by verbalizing worry and shaky voice. client denies any mh concerns. client reported a need for ongoing tx services in order to remain sober, however, he is contemplative and lacks internal focus and motivation to change. he stated I need to do something. clinician discussed tx options with client. client denies the need for residential tx. Client resides on the [place] [address] as [facility]. client reported that he will think about contacting this agency for AoD tx. clinician provided client with phone number of [facility].
[2024-01-03 14:37] VITALS: BP 198/111; PULSE 80; RESP 18; TEMP 36.6; O2SAT 100
[2024-01-03 14:44] VITALS: PULSE 80
[2024-01-03] MEDS: hydrALAZINE 20 MG/ML Vial 10 MG IV (14:44)
--- NOTE | 2024-01-03 15:01 | PN_ITS ---
Subjective Subjective Patient seen and examined. He complained of nausea and vomiting. He was still hoping to go home but continued throwing up later in the day. He denies any burning with urination or any diarrhea and abdominal pain. Review of systems otherwise negative. Objective Data Objective Data Vital Signs: Vital Signs Temp Pulse Resp BP Pulse Ox O2 Del Method O2 Flow Rate 98 F 80 18 198/111 H 100 Room Air 2 01/03/24 14:37 01/03/24 14:44 01/03/24 14:37 01/03/24 14:37 01/03/24 14:37 01/03/24 14:37 01/02/24 15:00 Oxygen Flow Rate (L/min) 2 Oxygen Delivery Method Room Air Weight: 167 lb 8.821 oz Body Mass Index (BMI) 24.7 Intake & Output: Intake and Output for Last 24 Hours 01/01/24 01/02/24 01/03/24 23:59 23:59 23:59 Intake Total 583.38 / 1031.38 612.91 / 912.91 550 / 550 Output Total 0 / 50 150 / 150 Balance 583.38 / 981.38 462.91 / 762.91 550 / 550 Lab / Micro Data 12/31/23 17:35 12/31/23 17:35 Physical Exam Const alert, oriented x3, no apparent distress and average body habitus General Appearance: cooperative HEENT normocephalic, head/scalp atraumatic, hearing grossly normal bilaterally and moist oral mucous membranes Eyes PERRL and EOMs intact bilaterally Neck no lymphadenopathy and supple Lymph Lymphatic: no lymphadenopathy noted and no lymphedema noted Resp normal respiratory effort, normal air movement, no retractions, no use of acc essory muscles and clear to auscultation bilaterally Cardio regular rate, regular rhythm, S1 normal heart sound, S2 normal heart sound and no murmurs GI normal to inspection, nondistended, normoactive bowel sounds, soft to palpation, non-tender and non-distended Extremity normal to inspection, full ROM, normal capillary refill, no clubbing, cyanosis or edema and no calf tenderness General Extremity: no tenderness to palpation of joints or extremities Neuro oriented x3, CN's II-XII intact bilaterally, moves all extremities, no focal motor deficits and no sensory deficits noted Sensorium / Orientation: awake, alert, oriented to person, oriented to place and oriented to time Speech: speech normal Motor Exam: strength 5/5 throughout and general weakness Psych thought process normal, cooperative and affect normal Appearance: appropriate Assessment & Plan Assessment/Plan (1) Alcohol withdrawal delirium, acute, hyperactive: (2) Opiate abuse, continuous: PLAN: Plan #Acute opioid withdrawal * Patient uses fentanyl chronically. Currently on opioid withdrawal protocol with buprenorphine. * Adjunctive meds for symptomatic relief. * Patient having intractable nausea today. On IV Zofran. * #Acute encephalopathy likely due to acute opioid withdrawal * Management as above. Aspiration precautions. * #Benign essential hypertension: IV hydralazine as needed #History of paroxysmal A-fib: Status post ablation, stable DVT prophylaxis: Lovenox Charges/Coding Visit Charges Inpatient E&M: 66153 Subs Hosp L2
--- NOTE | 2024-01-03 17:45 | NURSING ---
In to reassess BP after administration of Apresoline and patient was not in his room. The totes were popped open, gown was on the floor, belongings removed from tote. Resource officer notified as well as security and Dr. Black.
--- NOTE | 2024-01-04 07:08 | DS.PCM_ITS ---
Providers Date of Admission: 12/31/23 Primary Care Physician: Dr. Moisés Ravi MD Reason For Visit: ACUTE FENTANYL WITHDRAWAL. Diagnosis Discharge Diagnosis (1) Alcohol withdrawal delirium, acute, hyperactive: Status: Acute Code(s): F10.931 - Alcohol use, unspecified with withdrawal delirium (2) Opiate abuse, continuous: Status: Acute Code(s): F11.10 - Opioid abuse, uncomplicated Plan #Acute opioid withdrawal * Patient uses fentanyl chronically. Currently on opioid withdrawal protocol with buprenorphine. * Adjunctive meds for symptomatic relief. * Patient having intractable nausea today. On IV Zofran. * #Acute encephalopathy likely due to acute opioid withdrawal * Management as above. Aspiration precautions. * #Benign essential hypertension: IV hydralazine as needed #History of paroxysmal A-fib: Status post ablation, stable DVT prophylaxis: Lovenox Medications at Discharge Home Medications buprenorphine 8 mg-naloxone 2 mg sublingual film 2 film sublingual DAILY 08/15/23 Weight / BMI Weight Weight: 167 lb 8.821 oz Body Mass Index (BMI) 24.7 ABG / Lab / Microbiology Data 12/31/23 17:35 12/31/23 17:35 Discharge Plan Admission Admit Date/Time: 12/31/23 19:52 Primary Reason for Your Visit: acute opioid withdrawal Attending Provider: Lisandra Black Primary Care Provider: Moisés Ravi Chi Consult[employer] Providers: John Rivera Instructions Patient Instructions: ED Opiate Abuse, ED Opioid Withdrawal Discharge Orders/Prescriptions Prescriptions: Continued buprenorphine-naloxone 8-2 mg film 2 film sublingual DAILY Patient Comments: pt states that he only takes a couple times a week. Referrals / Follow Up: Moisés Ravi Chi, MD [Primary Care Provider] - Disposition Disposition (needs filled in before D/C Order can be placed): Against Medical Advice
--- NOTE | 2024-01-04 07:08 | PCM.DC.SUM ---
Providers Date of Admission: 12/31/23 Date of Discharge: 01/04/24 Primary Care Physician: Dr. Moisés Ravi MD Reason For Visit: ACUTE FENTANYL WITHDRAWAL. Diagnosis Discharge Diagnosis (1) Alcohol withdrawal delirium, acute, hyperactive: Status: Acute Code(s): F10.931 - Alcohol use, unspecified with withdrawal delirium (2) Opiate abuse, continuous: Status: Acute Code(s): F11.10 - Opioid abuse, uncomplicated Plan #Acute opioid withdrawal Patient uses fentanyl chronically. Currently on opioid withdrawal protocol with buprenorphine. Adjunctive meds for symptomatic relief. Patient having intractable nausea today. On IV Zofran. #Acute encephalopathy likely due to acute opioid withdrawal Management as above. Aspiration precautions. #Benign essential hypertension: IV hydralazine as needed #History of paroxysmal A-fib: Status post ablation, stable DVT prophylaxis: Lovenox Medications at Discharge Home Medications buprenorphine 8 mg-naloxone 2 mg sublingual film 2 film sublingual DAILY 08/15/23 Hospital Course Operations None Procedures None Summary of Care Provided Minutes Spent on Discharge: 45 Hospital Course: Patient is a 53-year-old male with a past medical history as outlined was admitted to the ED on 12/31/2023 with a complaint of acute fentanyl withdrawal. His symptoms are started about 14 hours prior to arrival. He has used fentanyl around that time. He usually uses 2-3 times daily and smoked or snorted it. He will occasionally use it IV also. He had jitteriness, nausea and sweating. He had been admitted recently for fentanyl detox but said after discharge he immediately relapsed. Patient was admitted and managed for acute opioid withdrawal. He was started on opioid withdrawal protocol with buprenorphine. Patient tolerated the 3-day detox process. He was initially lethargic but subsequently was more alert and communicative. Hospital course was complicated by intractable nausea and vomiting and for that reason patient was going to be kept for 1 more day to see how he did. Patient however signed out AGAINST MEDICAL ADVICE on 01/03/2024. Patient was seen and examined on the day of discharge. He had complained of nausea and vomiting. She was counseled to stay 1 more day and he was agreeable to this. He had no other complaints then. However on the evening of 01/03/2024 patient signed out AGAINST MEDICAL ADVICE. Patient seen and examined prior to discharge. He had no active complaints and had an uneventful night. Review of systems otherwise negative. Labs and vitals reviewed. Home medication reviewed and reconciled. Physical Exam Const alert, oriented x3, no apparent distress and average body habitus Constitutional Narrative: drowsy, unable to wake up to stimulation General Appearance: cooperative Orientation / Consciousness: lethargic HEENT normocephalic, head/scalp atraumatic, hearing grossly normal bilaterally and moist oral mucous membranes Eyes PERRL and EOMs intact bilaterally Neck no lymphadenopathy and supple Lymph Lymphatic: no lymphadenopathy noted and no lymphedema noted Resp normal respiratory effort, normal air movement, no retractions, no use of accessory muscles and clear to auscultation bilaterally Cardio regular rate, regular rhythm, S1 normal heart sound, S2 normal heart sound and no murmurs GI normal to inspection, nondistended, normoactive bowel sounds, soft to palpation, non-tender and non-distended Extremity normal to inspection, full ROM, normal capillary refill, no clubbing, cyanosis or edema and no calf tenderness General Extremity: no tenderness to palpation of joints or extremities Neuro oriented x3, CN's II-XII intact bilaterally, moves all extremities, no focal motor deficits and no sensory deficits noted Sensorium / Orientation: awake, alert, oriented to person, oriented to place and oriented to time Speech: speech normal Motor Exam: strength 5/5 throughout and general weakness Psych thought process normal, cooperative and affect normal Psych Narrative: lethargic, drowsy Appearance: appropriate Weight / BMI Weight Weight: 167 lb 8.821 oz Body Mass Index (BMI) 24.7 ABG / Lab / Microbiology Data 12/31/23 17:35 12/31/23 17:35 D/C Instructions Discharge Diet: Low fat / Low cholesterol Discharge Activity: Return to Normal Activity Weight Bearing Status: Weight bearing as tolerated Call your doctor if you observe: Fever of 101 or Higher, Shortness of breath, Dizziness, Swelling in the ankles and Chest pain Meaningful Use Info Meaningful Use Diagnoses (Choose all that apply): None applicable Discharge Plan Admission Admit Date/Time: 12/31/23 19:52 Primary Reason for Your Visit: acute opioid withdrawal Attending Provider: Lisandra Black Primary Care Provider: Moisés Ravi Chi Consulting Providers: John Rivera Instructions Patient Instructions: ED Opiate Abuse, ED Opioid Withdrawal Discharge Orders/Prescriptions Prescriptions: Continued buprenorphine-naloxone 8-2 mg film 2 film sublingual DAILY Patient Comments: pt states that he only takes a couple times a week. Referrals / Follow Up: Moisés Ravi Chi, MD [Primary Care Provider] - Within 2 Weeks Disposition Disposition (needs filled in before D/C Order can be placed): Against Medical Advice Charges/Coding Visit Charges Inpatient E&M: 61286 Disch Hosp >30min
== END 2024-01-03 17:16 | disposition left against medical advice (07) | DRG 770 ==
LOC: ED 19:40 → MS3 20:34 → ICU 01-01 00:50 → MS3 01-02 17:24
PROVIDERS: Nurse Practitioner; Admitting Provider Internal Medicine; Emergency Provider Student in an Organized Health Care Education/Training Program; PCP Family Medicine Geriatric Medicine; Visit Provider Student in an Organized Health Care Education/Training Program
DX: F11.13 Opioid abuse with withdrawal (principal); G92.8 Other toxic encephalopathy; F10.931 Alcohol use, unspecified with withdrawal delirium; I10 Essential (primary) hypertension; F12.10 Cannabis abuse, uncomplicated; F17.210 Nicotine dependence, cigarettes, uncomplicated; Z53.29 Procedure and treatment not carried out because of patient's decision for other reasons
CPT/HCPCS: 36415; 80048; 80307; 80320; 85025; 99283; 99406; J7050; G0480; J3486

== ENCOUNTER → 2024-07-26 | Outpatient (CLI) | payer MEDICAID, SELFPAY ==
[2024-07-26 13:28] LABS: Absolute Lymphocyte Count 4.79 X10^3/uL (0.83-4.51); Absolute Neutrophil Count 4.2 X10^3/uL (2.0-7.7); Basophil# 0.09 X10^3/uL; Basophil% 0.9 % (0-1); Eosinophil# 0.25 X10^3/uL; Eosinophils% 2.4 % (0-5); Hematocrit 45.6 % (40-54); Hemoglobin 14.7 g/dL (13.0-16.5); Lymphocyte # 4.79 X10^3/ul (0.83-4.51); Lymphocyte % 46.7 % (19-41); Mean Corp Hgb Conc 32.2 g/dL (32-36); Mean Corpuscular Hgb 29.3 pg (27.0-32.0); Mean Corpuscular Volume 90.8 fL (80-94); Mean Platelet Vol. 10.4 fl (6.2-12.0); Monocyte# 0.86 X10^3/uL; Monocyte% 8.4 % (0-10); NRBC Flagged by Analyzer 0 % (0-5); Neutrophil # 4.22 X10^3/uL (2.7-7.7); Neutrophil % 41.2 % (47-70); Platelet Count 303 K/mm3 (150-450); RBC Distribution Width CV 13.5 % (11.6-14.6); RBC Distribution Width SD 45.6 fl (35.1-43.9); Red Blood Count 5.02 M/mm3 (4.6-6.2); White Blood Count 10.3 K/mm3 (4.4-11.0)
[2024-07-26 14:17] LABS: ALB/GLOB Ratio 0.8 RATIO (0.9-2.4); AST(SGOT) 73 U/L (15-37); Alanine Aminotransfer ALT/SGPT 108 U/L (16-61); Albumin, Serum 3.5 g/dL (3.2-5.0); Alkaline Phosphatase 104 U/L (45-117); Anion Gap 7 (5-15); BUN 10 mg/dL (7-18); BUN/Creat Ratio 12.2 RATIO (10-20); Calcium,Total 9.3 mg/dL (8.5-10.1); Chloride 106 mmol/L (98-107); Cholesterol 194 mg/dL (200); Creatinine, Serum 0.82 mg/dL (0.70-1.30); EST Glomerular Filtration Rate 104 mL/min (>60); Est Glom Filt Rate - Afr Amer 126 mL/min (>60); Globulin 4.5 g/dL (2.2-4.2); Glucose 113 mg/dL (74-106); High Density Lipoprotein 57 mg/dL; Sodium Level 142 mmol/L (136-145); Triglycerides 110 mg/dL; Very Low Density Lipoprotein 22 mg/dL (5-40)
== END | disposition home or self-care (01) ==
LOC: POLAB3 13:17
PROVIDERS: PCP Family Medicine Geriatric Medicine; Visit Provider Family Medicine Geriatric Medicine
DX: I10 Essential (primary) hypertension (principal); E78.5 Hyperlipidemia, unspecified
CPT/HCPCS: 36415; 80053; 80061; 84443; 85025

== ENCOUNTER → 2024-07-31 | Outpatient (CLI) | payer MEDICAID, SELFPAY ==
[2024-08-09 11:09] LABS: Hep C Antibodies Reactive (Non Reactive)
== END | disposition home or self-care (01) ==
PROVIDERS: PCP Family Medicine Geriatric Medicine; Referring Provider Family Medicine Geriatric Medicine; Visit Provider Family Medicine Geriatric Medicine
DX: R74.8 Abnormal levels of other serum enzymes (principal); Z13.89 Encounter for screening for other disorder
CPT/HCPCS: 36415; 86803